=== PATIENT | female | born 1965 ===

== ENCOUNTER 2018-10-03 14:43 | Inpatient (IN) ==
[2018-10-03] MEDS ORDERED: MEPERIDINE 25 MG/1 ML VIAL IM STA (15:04)
[2018-10-03] MEDS ORDERED: PROMETHAZINE 25 MG/1 ML VIAL IM STA (15:04)
[2018-10-03] MEDS ORDERED: DEXTROSE 50% 25 GM/50 ML VIAL IV PRN (17:28)
[2018-10-03] MEDS ORDERED: GLUCAGON 1 MG VIAL IM PRN (17:28)
[2018-10-03 19:34] LABS: Basophils % 0.3 % (0.0-0.8); Eosinophils # 0.2 10*3/uL (0.0-0.87); Eosinophils % 1.9 % (0.00-10.9); Hemoglobin 10.1 GM/DL (12.0-16.0); Immature Granulocytes % 0.3 %; Immature Granulocytes Absolute 0.04 #; Lymphocytes # 2.4 10*3/uL (1.4-4.0); Lymphocytes % 19.4 % (21.3-54.2); Mean Corpuscular HGB Conc 31.6 GM/DL (32-36); Mean Corpuscular Hemoglobin 29 PG (27-34); Mean Corpuscular Volume 92.8 FL (87-102); Mean Platelet Volume 10.3 FL (9.6-12.0); Monocytes # 0.8 10*3/uL (0.11-0.8); Monocytes % 6.6 % (1.7-12.7); Neutrophils # 8.8 10*3/uL (1.4-7.4); Neutrophils % 71.5 % (38.7-73.9); Platelet Count 206 T/CUMM (130-400); Red Blood Count 3.45 MC/CUMM (3.8-5.5); Red Cell Distribution Width 13.1 % (9.3-17.3); White Blood Count 12.4 T/CUMM (4-12)
[2018-10-03 19:55] LABS: Albumin 3.2 G/DL (3.4-5.0); Bilirubin,Total 0.8 MG/DL (0.2-1.0); Calcium 9.6 MG/DL (8.5-10.1); Osmolality,Calculated 289.2 MOS/KG (273-304); Potassium 4.5 MMOL/L (3.5-5.1); Total Protein 7.7 G/DL (6.4-8.3)
[2018-10-03] MEDS: INSULIN LISPRO 100 UNIT/ML SUBCUT SCH (21:06)
[2018-10-04 05:01] LABS: Basophils # 0.1 10*3/uL (0.0-0.2); Basophils % 0.4 % (0.0-0.8); Eosinophils # 0.2 10*3/uL (0.0-0.87); Eosinophils % 1.5 % (0.00-10.9); Hemoglobin 10.4 GM/DL (12.0-16.0); Immature Granulocytes % 0.4 %; Immature Granulocytes Absolute 0.05 #; Lymphocytes # 2.6 10*3/uL (1.4-4.0); Lymphocytes % 19.5 % (21.3-54.2); Mean Corpuscular HGB Conc 31.5 GM/DL (32-36); Mean Corpuscular Hemoglobin 30 PG (27-34); Mean Platelet Volume 10.5 FL (9.6-12.0); Monocytes # 0.9 10*3/uL (0.11-0.8); Monocytes % 6.3 % (1.7-12.7); Neutrophils # 9.7 10*3/uL (1.4-7.4); Neutrophils % 71.9 % (38.7-73.9); Platelet Count 204 T/CUMM (130-400); Red Blood Count 3.51 MC/CUMM (3.8-5.5); Red Cell Distribution Width 13.2 % (9.3-17.3); White Blood Count 13.5 T/CUMM (4-12)
[2018-10-04 05:29] LABS: Calcium 8.9 MG/DL (8.5-10.1); Osmolality,Calculated 285.8 MOS/KG (273-304); Potassium 5.1 MMOL/L (3.5-5.1); Risk Ratio 4.19; Thyroid Stimulating Hormone 0.802 uIU/ml (0.358-3.74); VLDL CHOLESTEROL 40.8 MG/DL
[2018-10-04] MEDS: MORPHINE 4 MG/1 ML VIAL IV PRN ×2 (05:35→17:52)
[2018-10-04] MEDS: PANTOPRAZOLE 40 MG TABLET PO SCH ×2 (07:56→09:07)
[2018-10-04] MEDS: SODIUM CHLORIDE 0.9% 250 ML IV SCH ×2 (09:17→21:40)
[2018-10-04] MEDS: INSULIN LISPRO 100 UNIT/ML SUBCUT SCH ×4 (10:07→21:40)
[2018-10-04] MEDS ORDERED: ceFAZolin 1,000 MG VIAL ONE (10:33)
[2018-10-04] MEDS ORDERED: fentaNYL 100 MCG/2 ML VIAL ONE (12:15)
[2018-10-04] MEDS ORDERED: MIDAZOLAM 2 MG/2 ML VIAL ONE (12:15)
[2018-10-04] MEDS ORDERED: SEVOFLURANE 1 UNIT/15 MINUTE INH ONE (12:15)
[2018-10-04] MEDS ORDERED: PROPOFOL 200 MG/20 ML VIAL IV ONE (12:16)
[2018-10-04] MEDS ORDERED: ePHEDrine 50 MG/ML AMP ONE (12:17)
[2018-10-04] MEDS ORDERED: GLYCOPYRROLATE 0.4 MG/2 ML VIAL ONE (12:17)
[2018-10-04] MEDS ORDERED: ROCURONIUM 100 MG/10 ML VIAL IV ONE (12:17)
[2018-10-04] MEDS ORDERED: NEOSTIGMINE 10 MG/10 ML VIAL ONE (12:17)
[2018-10-04] MEDS ORDERED: PHENYLEPHRINE 1 MG/10 ML SYRINGE IV ONE (12:17)
[2018-10-04] MEDS ORDERED: ONDANSETRON 4 MG/2 ML VIAL ONE (12:17)
[2018-10-04 14:23] LABS: Hepatitis A Ab IgM Quant 0.15 Index; Hepatitis A Ab IgM Result Negative (Negative); Hepatitis B Core IgM Quant 0.05 Index; Hepatitis B Core IgM Result Negative (Negative); Hepatitis B Surface Ag Quant < 0.10 Index; Hepatitis B Surface Ag Result Negative (Negative); Hepatitis C Virus Ab Quant 0.02 Index; Hepatitis C Virus Ab Result Negative (Negative)
[2018-10-04] MEDS: ONDANSETRON 4 MG/2 ML VIAL IV PRN (17:50)
[2018-10-04] MEDS: CALCIUM ACETATE 667 MG CAPSULE PO SCH ×2 (17:51→21:40)
[2018-10-04] MEDS: PARoxetine 10 MG TABLET PO SCH (17:52)
[2018-10-04] MEDS ORDERED: INSULIN NPH/REGULAR 70/30 100 UNIT/ML SUBCUT SCH (19:00)
[2018-10-04] MEDS: oxyCODONE/ACETAMINOPHEN 5-325 MG TABLET PO PRN (23:45)
[2018-10-04] MEDS ORDERED: GLUCAGON 1 MG VIAL IM PRN (23:48)
[2018-10-04] MEDS ORDERED: DEXTROSE 50% 25 GM/50 ML VIAL IV PRN (23:48)
[2018-10-05] MEDS: SODIUM CHLORIDE 0.9% 250 ML IV SCH ×2 (05:46→11:59)
[2018-10-05 06:36] LABS: Basophils % 0.2 % (0.0-0.8); Eosinophils # 0.1 10*3/uL (0.0-0.87); Eosinophils % 0.7 % (0.00-10.9); Hematocrit 28.2 VOL% (35.7-47.0); Hemoglobin 8.6 GM/DL (12.0-16.0); Immature Granulocytes % 0.3 %; Immature Granulocytes Absolute 0.04 #; Lymphocytes # 2.3 10*3/uL (1.4-4.0); Lymphocytes % 18.5 % (21.3-54.2); Mean Corpuscular HGB Conc 30.5 GM/DL (32-36); Mean Corpuscular Hemoglobin 29 PG (27-34); Mean Corpuscular Volume 95.6 FL (87-102); Mean Platelet Volume 10.5 FL (9.6-12.0); Monocytes % 8.1 % (1.7-12.7); Neutrophils # 8.9 10*3/uL (1.4-7.4); Neutrophils % 72.2 % (38.7-73.9); Platelet Count 168 T/CUMM (130-400); Red Blood Count 2.95 MC/CUMM (3.8-5.5); Red Cell Distribution Width 13.2 % (9.3-17.3); White Blood Count 12.3 T/CUMM (4-12)
[2018-10-05 06:53] LABS: Calcium 8.3 MG/DL (8.5-10.1); Osmolality,Calculated 275.9 MOS/KG (273-304)
[2018-10-05] MEDS ORDERED: ASPIRIN 325 MG TABLET PO SCH (09:00)
[2018-10-05] MEDS ORDERED: INSULIN NPH/REGULAR 70/30 100 UNIT/ML SUBCUT SCH (09:00)
[2018-10-05] MEDS ORDERED: LOSARTAN 50 MG TABLET PO SCH (09:00)
[2018-10-05] MEDS: PARoxetine 10 MG TABLET PO SCH (09:44)
[2018-10-05] MEDS: CALCIUM ACETATE 667 MG CAPSULE PO SCH ×3 (09:44→14:04)
[2018-10-05] MEDS: ONDANSETRON 4 MG/2 ML VIAL IV PRN (09:44)
[2018-10-05] MEDS: oxyCODONE/ACETAMINOPHEN 5-325 MG TABLET PO PRN (09:45)
[2018-10-05] MEDS: PANTOPRAZOLE 40 MG TABLET PO SCH (09:45)
[2018-10-05] MEDS: INSULIN LISPRO 100 UNIT/ML SUBCUT SCH ×2 (11:04→14:04)
[2018-10-05 11:34] VITALS: BP 103/46
== END 2018-10-05 13:55 | disposition home or self-care (01) | DRG 492 ==
LOC: EDUNIT# → N.ED 14:43 → N.EDINP 17:27 → SUATTDRO 17:27 → N.EDINP 18:27 → N.3E 18:48
PROVIDERS: ADMIT Hospitalist; ATTEND Internal Medicine Geriatric Medicine

== ENCOUNTER 2019-01-06 13:11 | Inpatient (IN) ==
[2019-01-06] MEDS ORDERED: cefOXitin 1,000 MG in SODIUM CHLORIDE 0.9% 100 ML IV STA (13:49)
[2019-01-06] MEDS ORDERED: BISACODYL 5 MG TABLET PO PRN (14:24)
[2019-01-06] MEDS ORDERED: ALBUTEROL/IPRATROPIUM 3 ML NEB RESP TX PRN (14:24)
[2019-01-06] MEDS ORDERED: ACETAMINOPHEN 325 MG TABLET PO PRN (14:24)
[2019-01-06] MEDS ORDERED: HYDROmorphone 2 MG/1 ML VIAL IV PRN (14:24)
[2019-01-06] MEDS ORDERED: GLUCAGON 1 MG VIAL IM PRN (14:30)
[2019-01-06] MEDS ORDERED: DEXTROSE 50% 25 GM/50 ML VIAL IV PRN (14:30)
[2019-01-06] MEDS: LACTATED RINGERS 1,000 ML IV SCH (15:40)
[2019-01-06] MEDS: INSULIN LISPRO 100 UNIT/ML SUBCUT SCH (17:56)
[2019-01-06] MEDS: cefOXitin 2,000 MG in SYRINGE 1 EACH IV SCH (20:45)
[2019-01-07] MEDS: LACTATED RINGERS 1,000 ML IV SCH ×3 (01:57→16:15)
[2019-01-07] MEDS: cefOXitin 2,000 MG in SYRINGE 1 EACH IV SCH (02:50)
[2019-01-07 05:18] LABS: PT Patient Result 11.2 SECS
[2019-01-07 05:23] LABS: Basophils % 0.3 % (0.0-0.8); Eosinophils # 0.1 10*3/uL (0.0-0.87); Eosinophils % 1.1 % (0.00-10.9); Hemoglobin 9.3 GM/DL (12.0-16.0); Immature Granulocytes % 0.3 %; Immature Granulocytes Absolute 0.02 #; Lymphocytes # 1.3 10*3/uL (1.4-4.0); Lymphocytes % 16.7 % (21.3-54.2); Mean Corpuscular Hemoglobin 28 PG (27-34); Mean Corpuscular Volume 90.1 FL (87-102); Mean Platelet Volume 10.7 FL (9.6-12.0); Monocytes # 0.7 10*3/uL (0.11-0.8); Monocytes % 9.2 % (1.7-12.7); Neutrophils # 5.4 10*3/uL (1.4-7.4); Neutrophils % 72.4 % (38.7-73.9); Platelet Count 173 T/CUMM (130-400); Red Blood Count 3.33 MC/CUMM (3.8-5.5); White Blood Count 7.5 T/CUMM (4-12)
[2019-01-07 05:30] LABS: Albumin 2.8 G/DL (3.4-5.0); Bilirubin,Total 4.1 MG/DL (0.2-1.0); Calcium 8.1 MG/DL (8.5-10.1); Osmolality,Calculated 277.4 MOS/KG (273-304); Potassium 3.5 MMOL/L (3.5-5.1); Total Protein 7.1 G/DL (6.4-8.3)
[2019-01-07] MEDS: INSULIN LISPRO 100 UNIT/ML SUBCUT SCH ×3 (08:53→18:00)
[2019-01-07] MEDS: PANTOPRAZOLE 40 MG TABLET PO SCH (08:54)
[2019-01-07] MEDS ORDERED: ceFAZolin 2,000 MG in PREMIX 1 EACH IV ONE (10:29)
[2019-01-07] MEDS ORDERED: INDOMETHACIN SUPP 50 MG SUPP RECTAL ONE (11:30)
[2019-01-07] MEDS ORDERED: TISSUE ADHESIVE 1 EACH APPLICATOR TOP ONE (11:38)
[2019-01-07] MEDS ORDERED: LIDOCAINE 1%/EPI INJ 20 ML VIAL ONE (11:38)
[2019-01-07] MEDS ORDERED: PROPOFOL 200 MG/20 ML VIAL IV ONE (13:15)
[2019-01-07] MEDS ORDERED: SEVOFLURANE 1 UNIT/15 MINUTE INH ONE (13:15)
[2019-01-07] MEDS ORDERED: DEXAMETHASONE 4 MG/1 ML VIAL ONE (13:16)
[2019-01-07] MEDS ORDERED: NEOSTIGMINE 10 MG/10 ML VIAL ONE (13:16)
[2019-01-07] MEDS ORDERED: ROCURONIUM 100 MG/10 ML VIAL IV ONE (13:16)
[2019-01-07] MEDS ORDERED: ONDANSETRON 4 MG/2 ML VIAL ONE ×2 (13:16→13:44)
[2019-01-07] MEDS ORDERED: GLYCOPYRROLATE 0.4 MG/2 ML VIAL ONE (13:16)
[2019-01-07] MEDS ORDERED: KETAMINE 500 MG/10 ML VIAL ONE (13:16)
[2019-01-07] MEDS ORDERED: MEPERIDINE 25 MG/1 ML VIAL ONE (13:44)
[2019-01-07] MEDS ORDERED: ONDANSETRON 4 MG/2 ML VIAL IV PRN (14:24)
[2019-01-07] MEDS ORDERED: MEPERIDINE 25 MG/1 ML VIAL IV PRN (14:24)
[2019-01-07] MEDS ORDERED: EPOETIN ALFA 2,000 UNIT/1 ML VIAL IV PRN (14:49)
[2019-01-07] MEDS ORDERED: SODIUM CHLORIDE 0.9% 500 ML IV PRN (14:56)
[2019-01-07] MEDS ORDERED: cefOXitin 1,000 MG in SYRINGE 1 EACH IV SCH (17:00)
[2019-01-07] MEDS: ONDANSETRON 4 MG/2 ML VIAL IV PRN (18:07)
[2019-01-07] MEDS: CALCIUM ACETATE 667 MG CAPSULE PO SCH ×2 (18:07→20:23)
[2019-01-08] MEDS: LACTATED RINGERS 1,000 ML IV SCH ×2 (02:02→07:52)
[2019-01-08 05:00] LABS: Basophils % 0.1 % (0.0-0.8); Hematocrit 32.6 VOL% (35.7-47.0); Hemoglobin 10.1 GM/DL (12.0-16.0); Immature Granulocytes % 0.4 %; Immature Granulocytes Absolute 0.06 #; Lymphocytes # 0.7 10*3/uL (1.4-4.0); Lymphocytes % 4.4 % (21.3-54.2); Mean Corpuscular Hemoglobin 28 PG (27-34); Mean Corpuscular Volume 89.1 FL (87-102); Mean Platelet Volume 11.2 FL (9.6-12.0); Monocytes # 0.6 10*3/uL (0.11-0.8); Monocytes % 3.8 % (1.7-12.7); Neutrophils # 13.8 10*3/uL (1.4-7.4); Neutrophils % 91.3 % (38.7-73.9); Platelet Count 171 T/CUMM (130-400); Red Blood Count 3.66 MC/CUMM (3.8-5.5); White Blood Count 15.1 T/CUMM (4-12)
[2019-01-08 05:28] LABS: Alanine Aminotransferase 29 U/L (13-56); Albumin 2.5 G/DL (3.4-5.0); Alkaline Phosphatase 291 U/L (45-117); Aspartate Amino Transferase 43 U/L (0-37); Blood Urea Nitrogen 54 MG/DL (7-18); Calcium 7.7 MG/DL (8.5-10.1); Glucose 268 MG/DL (74-106); Lipase < 50.0 U/L (73-393); Osmolality,Calculated 281.9 MOS/KG (273-304); Potassium 4.6 MMOL/L (3.5-5.1); Sodium 129 MMOL/L (136-145); Total Protein 7.2 G/DL (6.4-8.3)
[2019-01-08 05:51] LABS: Anisocytosis 1+; Band Neutrophils 9 % (0-10); Lymphocytes 4 % (20-55); Platelet Estimate Adequate; Segmented Neutrophils 83 % (50-85); Total Cells Counted 100
[2019-01-08] MEDS: INSULIN LISPRO 100 UNIT/ML SUBCUT SCH ×3 (07:52→17:00)
[2019-01-08] MEDS: CALCIUM ACETATE 667 MG CAPSULE PO SCH ×5 (07:52→20:43)
[2019-01-08] MEDS: LOSARTAN 50 MG TABLET PO SCH (08:15)
[2019-01-08] MEDS: PANTOPRAZOLE 40 MG TABLET PO SCH (08:15)
[2019-01-08] MEDS: PARoxetine 10 MG TABLET PO SCH (08:15)
[2019-01-09 05:01] LABS: Basophils % 0.2 % (0.0-0.8); Eosinophils % 0.4 % (0.00-10.9); Hematocrit 32.2 VOL% (35.7-47.0); Hemoglobin 9.8 GM/DL (12.0-16.0); Immature Granulocytes % 0.5 %; Immature Granulocytes Absolute 0.06 #; Lymphocytes # 1.4 10*3/uL (1.4-4.0); Lymphocytes % 12.7 % (21.3-54.2); Mean Corpuscular HGB Conc 30.4 GM/DL (32-36); Mean Corpuscular Hemoglobin 27 PG (27-34); Mean Corpuscular Volume 89.2 FL (87-102); Mean Platelet Volume 10.4 FL (9.6-12.0); Monocytes # 0.8 10*3/uL (0.11-0.8); Neutrophils # 8.8 10*3/uL (1.4-7.4); Neutrophils % 79.2 % (38.7-73.9); Platelet Count 171 T/CUMM (130-400); Red Blood Count 3.61 MC/CUMM (3.8-5.5); Red Cell Distribution Width 16.4 % (9.3-17.3); White Blood Count 11.1 T/CUMM (4-12)
[2019-01-09 05:30] LABS: Albumin 2.5 G/DL (3.4-5.0); Bilirubin,Total 3.5 MG/DL (0.2-1.0); Calcium 8.3 MG/DL (8.5-10.1); Osmolality,Calculated 279.8 MOS/KG (273-304); Total Protein 7.4 G/DL (6.4-8.3)
[2019-01-09] MEDS: CALCIUM ACETATE 667 MG CAPSULE PO SCH ×5 (08:56→20:20)
[2019-01-09] MEDS: PARoxetine 10 MG TABLET PO SCH (08:56)
[2019-01-09] MEDS: PANTOPRAZOLE 40 MG TABLET PO SCH (08:56)
[2019-01-09] MEDS: LOSARTAN 50 MG TABLET PO SCH (08:56)
[2019-01-09] MEDS: INSULIN LISPRO 100 UNIT/ML SUBCUT SCH ×3 (08:57→16:40)
[2019-01-09] MEDS: ONDANSETRON 4 MG/2 ML VIAL IV PRN (12:00)
[2019-01-10 06:13] LABS: Albumin 2.4 G/DL (3.4-5.0); Bilirubin,Direct 1.67 MG/DL (0.0-0.20); Bilirubin,Indirect 0.5 MG/DL (0.0-1.0); Bilirubin,Total 2.2 MG/DL (0.2-1.0)
[2019-01-10] MEDS: PARoxetine 10 MG TABLET PO SCH (09:04)
[2019-01-10] MEDS: LOSARTAN 50 MG TABLET PO SCH (09:04)
[2019-01-10] MEDS: PANTOPRAZOLE 40 MG TABLET PO SCH (09:04)
[2019-01-10] MEDS: CALCIUM ACETATE 667 MG CAPSULE PO SCH ×4 (09:05→17:04)
[2019-01-10] MEDS: INSULIN LISPRO 100 UNIT/ML SUBCUT SCH ×3 (09:56→17:04)
[2019-01-10 17:29] VITALS: BP 174/72
== END 2019-01-10 18:25 | disposition home or self-care (01) | DRG 417 ==
LOC: EDBD → EDUNIT# → N.ED 13:11 → N.EDINP 14:52 → N.3E 16:40
PROVIDERS: ADMIT Surgery; ATTEND Surgery
PROC: ERCPWSP (ICD-10-PCS; 2019-01-07 09:35)
PROC: LAPCHOL (2019-01-07 11:03)

== ENCOUNTER 2019-10-23 14:25 | Inpatient (IN) ==
[2019-10-23] MEDS ORDERED: ONDANSETRON 4 MG/2 ML VIAL IV PRN (17:13)
[2019-10-23] MEDS ORDERED: DOCUSATE SODIUM 100 MG CAPSULE PO PRN (17:13)
[2019-10-23] MEDS ORDERED: LACTULOSE 20 GM/30 ML UDCUP PO PRN (17:13)
[2019-10-23] MEDS ORDERED: GLUCAGON 1 MG VIAL IM PRN (17:19)
[2019-10-23] MEDS ORDERED: DEXTROSE 10% 250 ML BAG IV PRN (17:19)
[2019-10-23] MEDS: PIPERACILLIN/TAZOBACTAM 3,375 MG in SODIUM CHLORIDE 0.9% 100 ML IV SCH (18:24)
[2019-10-23] MEDS ORDERED: LABETALOL 20 MG/4 ML SYRINGE IV PRN (18:36)
[2019-10-23] MEDS ORDERED: VANCOMYCIN INJ 500 MG in SODIUM CHLORIDE 0.9% 250 ML IV PRN (19:32)
[2019-10-23] MEDS ORDERED: VANCOMYCIN INJ 1,000 MG in SODIUM CHLORIDE 0.9% 250 ML IV ONE (20:00)
[2019-10-23] MEDS: INSULIN REGULAR 100 UNIT/ML SUBCUT SCH (20:58)
[2019-10-23] MEDS: ACETAMINOPHEN 325 MG TABLET PO PRN (20:58)
[2019-10-23] MEDS: HEPARIN 5,000 UNIT/1 ML VIAL SUBCUT SCH (22:03)
[2019-10-23] MEDS ORDERED: VANCOMYCIN INJ 2,000 MG in SODIUM CHLORIDE 0.9% 500 ML IV ONE (22:30)
[2019-10-24 05:20] LABS: Basophils % 0.1 % (0.0-0.8); Eosinophils # 0.3 10*3/uL (0.0-0.87); Eosinophils % 1.8 % (0.00-10.9); Hematocrit 24.8 VOL% (35.7-47.0); Hemoglobin 7.8 GM/DL (12.0-16.0); Immature Granulocytes % 0.7 %; Lymphocytes # 2.1 10*3/uL (1.4-4.0); Lymphocytes % 14.3 % (21.3-54.2); Mean Corpuscular HGB Conc 31.5 GM/DL (32-36); Mean Corpuscular Volume 96.9 FL (87-102); Monocytes % 6.3 % (1.7-12.7); Neutrophils % 76.8 % (38.7-73.9); Platelet Count 294 T/CUMM (130-400); Red Blood Count 2.56 MC/CUMM (3.8-5.5); Red Cell Distribution Width 13.1 % (9.3-17.3); White Blood Count 14.7 T/CUMM (4-12)
[2019-10-24] MEDS: PIPERACILLIN/TAZOBACTAM 3,375 MG in SODIUM CHLORIDE 0.9% 100 ML IV SCH ×2 (05:26→20:59)
[2019-10-24 05:44] LABS: Calcium 8.3 MG/DL (8.5-10.1); Osmolality,Calculated 280.5 MOS/KG (273-304)
[2019-10-24] MEDS: HEPARIN 5,000 UNIT/1 ML VIAL SUBCUT SCH ×3 (05:44→21:04)
[2019-10-24] MEDS ORDERED: DEXTROSE 50% 25 GM/50 ML VIAL IV PRN (09:27)
[2019-10-24] MEDS: PARoxetine 10 MG TABLET PO SCH (09:41)
[2019-10-24] MEDS: INSULIN REGULAR 100 UNIT/ML SUBCUT SCH ×4 (09:41→21:35)
[2019-10-24] MEDS: LOSARTAN 50 MG TABLET PO SCH (09:43)
[2019-10-24] MEDS: SEVELAMER CARBONATE 800 MG TABLET PO SCH ×2 (12:17→18:51)
[2019-10-24] MEDS: carvediloL 25 MG TABLET PO SCH ×2 (12:17→18:51)
[2019-10-24] MEDS: CALCIUM ACETATE 667 MG CAPSULE PO SCH ×2 (12:17→18:51)
[2019-10-24] MEDS ORDERED: VANCOMYCIN INJ 500 MG in SODIUM CHLORIDE 0.9% 100 ML IV ONE (17:00)
[2019-10-25] MEDS: HEPARIN 5,000 UNIT/1 ML VIAL SUBCUT SCH ×3 (06:05→22:04)
[2019-10-25 06:14] LABS: Basophils # 0.1 10*3/uL (0.0-0.2); Basophils % 0.3 % (0.0-0.8); Eosinophils # 0.2 10*3/uL (0.0-0.87); Eosinophils % 1.4 % (0.00-10.9); Hematocrit 25.9 VOL% (35.7-47.0); Hemoglobin 8.1 GM/DL (12.0-16.0); Immature Granulocytes % 0.8 %; Immature Granulocytes Absolute 0.14 #; Lymphocytes # 1.8 10*3/uL (1.4-4.0); Mean Corpuscular HGB Conc 31.3 GM/DL (32-36); Mean Corpuscular Volume 97.7 FL (87-102); Mean Platelet Volume 9.5 FL (9.6-12.0); Monocytes % 6.5 % (1.7-12.7); Platelet Count 339 T/CUMM (130-400); Red Blood Count 2.65 MC/CUMM (3.8-5.5); Red Cell Distribution Width 13.3 % (9.3-17.3); White Blood Count 16.6 T/CUMM (4-12)
[2019-10-25 06:34] LABS: Calcium 8.7 MG/DL (8.5-10.1); Osmolality,Calculated 279.4 MOS/KG (273-304)
[2019-10-25] MEDS: INSULIN REGULAR 100 UNIT/ML SUBCUT SCH ×4 (09:34→22:03)
[2019-10-25] MEDS: SEVELAMER CARBONATE 800 MG TABLET PO SCH ×3 (09:35→16:31)
[2019-10-25] MEDS: CALCIUM ACETATE 667 MG CAPSULE PO SCH ×3 (09:35→16:31)
[2019-10-25] MEDS: carvediloL 25 MG TABLET PO SCH ×2 (13:13→16:31)
[2019-10-25] MEDS ORDERED: SODIUM CHLORIDE 0.9% 250 ML IV SCH (14:00)
[2019-10-25] MEDS ORDERED: LIDOCAINE 1% 20 ML VIAL ONE (14:01)
[2019-10-25] MEDS ORDERED: LIDOCAINE 2% 5 ML VIAL ONE (14:27)
[2019-10-25] MEDS ORDERED: fentaNYL 100 MCG/2 ML VIAL ONE (14:27)
[2019-10-25] MEDS ORDERED: propofoL 200 MG/20 ML VIAL IV ONE (14:27)
[2019-10-25] MEDS ORDERED: MIDAZOLAM 2 MG/2 ML VIAL ONE (14:28)
[2019-10-25] MEDS: PIPERACILLIN/TAZOBACTAM 3,375 MG in SODIUM CHLORIDE 0.9% 100 ML IV SCH ×2 (16:28→20:53)
[2019-10-25] MEDS: LOSARTAN 50 MG TABLET PO SCH (16:31)
[2019-10-25] MEDS: PARoxetine 10 MG TABLET PO SCH (16:31)
[2019-10-26] MEDS: ACETAMINOPHEN 325 MG TABLET PO PRN (00:39)
[2019-10-26 05:23] LABS: Basophils # 0.1 10*3/uL (0.0-0.2); Basophils % 0.4 % (0.0-0.8); Eosinophils # 0.2 10*3/uL (0.0-0.87); Eosinophils % 1.6 % (0.00-10.9); Hematocrit 25.5 VOL% (35.7-47.0); Immature Granulocytes Absolute 0.14 #; Lymphocytes # 1.7 10*3/uL (1.4-4.0); Lymphocytes % 12.2 % (21.3-54.2); Mean Corpuscular HGB Conc 31.4 GM/DL (32-36); Mean Corpuscular Volume 98.1 FL (87-102); Mean Platelet Volume 9.9 FL (9.6-12.0); Monocytes % 6.3 % (1.7-12.7); Neutrophils % 78.5 % (38.7-73.9); Platelet Count 310 T/CUMM (130-400); Red Cell Distribution Width 13.3 % (9.3-17.3); White Blood Count 14.1 T/CUMM (4-12)
[2019-10-26 05:33] LABS: Calcium 8.4 MG/DL (8.5-10.1); Osmolality,Calculated 277.9 MOS/KG (273-304)
[2019-10-26 05:43] LABS: Hypochromasia 1+; Platelet Estimate Adequate
[2019-10-26] MEDS: HEPARIN 5,000 UNIT/1 ML VIAL SUBCUT SCH ×3 (06:15→21:16)
[2019-10-26] MEDS: INSULIN REGULAR 100 UNIT/ML SUBCUT SCH ×4 (08:20→21:09)
[2019-10-26] MEDS: SEVELAMER CARBONATE 800 MG TABLET PO SCH ×3 (08:21→18:36)
[2019-10-26] MEDS: carvediloL 25 MG TABLET PO SCH ×2 (08:21→18:36)
[2019-10-26] MEDS: LOSARTAN 50 MG TABLET PO SCH (08:21)
[2019-10-26] MEDS: PARoxetine 10 MG TABLET PO SCH (08:21)
[2019-10-26] MEDS: PIPERACILLIN/TAZOBACTAM 3,375 MG in SODIUM CHLORIDE 0.9% 100 ML IV SCH ×2 (08:21→21:10)
[2019-10-26] MEDS: CALCIUM ACETATE 667 MG CAPSULE PO SCH ×3 (08:21→18:36)
[2019-10-26] MEDS: SODIUM HYPOCHLORITE 0.25% IRRIG 473 ML BOTTLE TOP SCH (10:48)
[2019-10-26] MEDS ORDERED: VANCOMYCIN INJ 500 MG in SODIUM CHLORIDE 0.9% 100 ML IV PRN (12:00)
[2019-10-26] MEDS ORDERED: VANCOMYCIN INJ 500 MG in SODIUM CHLORIDE 0.9% 100 ML IV ONE (17:00)
[2019-10-26] MEDS: INSULIN GLARGINE 100 UNIT/ML SUBCUT SCH (18:37)
[2019-10-27 04:50] LABS: Basophils % 0.3 % (0.0-0.8); Eosinophils # 0.5 10*3/uL (0.0-0.87); Eosinophils % 3.8 % (0.00-10.9); Hemoglobin 7.8 GM/DL (12.0-16.0); Immature Granulocytes Absolute 0.12 #; Lymphocytes # 1.8 10*3/uL (1.4-4.0); Lymphocytes % 14.7 % (21.3-54.2); Mean Corpuscular HGB Conc 31.2 GM/DL (32-36); Mean Corpuscular Volume 96.5 FL (87-102); Mean Platelet Volume 9.3 FL (9.6-12.0); Monocytes % 8.2 % (1.7-12.7); Platelet Count 334 T/CUMM (130-400); Red Blood Count 2.59 MC/CUMM (3.8-5.5); Red Cell Distribution Width 13.3 % (9.3-17.3)
[2019-10-27 05:21] LABS: Calcium 9.1 MG/DL (8.5-10.1); Osmolality,Calculated 279.4 MOS/KG (273-304)
[2019-10-27] MEDS: HEPARIN 5,000 UNIT/1 ML VIAL SUBCUT SCH (05:42)
[2019-10-27] MEDS: SEVELAMER CARBONATE 800 MG TABLET PO SCH ×2 (08:28→12:02)
[2019-10-27] MEDS: carvediloL 25 MG TABLET PO SCH (08:28)
[2019-10-27] MEDS: PARoxetine 10 MG TABLET PO SCH (08:28)
[2019-10-27] MEDS: LOSARTAN 50 MG TABLET PO SCH (08:28)
[2019-10-27] MEDS: CALCIUM ACETATE 667 MG CAPSULE PO SCH ×2 (08:28→12:02)
[2019-10-27] MEDS: INSULIN GLARGINE 100 UNIT/ML SUBCUT SCH (08:29)
[2019-10-27] MEDS: INSULIN REGULAR 100 UNIT/ML SUBCUT SCH ×2 (08:29→12:02)
[2019-10-27] MEDS: SODIUM HYPOCHLORITE 0.25% IRRIG 473 ML BOTTLE TOP SCH (08:34)
[2019-10-27] MEDS: PIPERACILLIN/TAZOBACTAM 3,375 MG in SODIUM CHLORIDE 0.9% 100 ML IV SCH (08:34)
[2019-10-27] MEDS ORDERED: GENTAMICIN INJ 100 MG in PREMIX 1 EACH IV PRN (08:36)
[2019-10-27] MEDS ORDERED: GENTAMICIN INJ 200 MG in SODIUM CHLORIDE 0.9% 100 ML IV ONE (09:30)
[2019-10-27 12:28] VITALS: BP 129/47
== END 2019-10-27 14:45 | disposition home health service (06) | DRG 239 ==
LOC: SUATTDRO 16:07 → N.2E 16:07
PROVIDERS: ADMIT Internal Medicine; ATTEND Internal Medicine

== ENCOUNTER 2020-10-16 23:29 | Inpatient (IN) ==
[2020-10-17] MEDS ORDERED: DEXTROSE 50% 25 GM/50 ML VIAL IV PRN (01:45)
[2020-10-17] MEDS ORDERED: GLUCAGON 1 MG VIAL IM PRN (01:45)
[2020-10-17] MEDS ORDERED: PIPERACILLIN/TAZOBACTAM 3,375 MG in SODIUM CHLORIDE 0.9% 100 ML IV SCH (02:00)
[2020-10-17] MEDS: PIPERACILLIN/TAZOBACTAM 3,375 MG in SODIUM CHLORIDE 0.9% 100 ML IV SCH ×2 (03:19→16:50)
[2020-10-17 03:46] LABS: Basophils % 0.2 % (0.0-0.8); Eosinophils # 0.1 10*3/uL (0.0-0.87); Eosinophils % 0.5 % (0.00-10.9); Hematocrit 26.3 VOL% (35.7-47.0); Hemoglobin 8.4 GM/DL (12.0-16.0); Immature Granulocytes % 0.4 %; Immature Granulocytes Absolute 0.07 #; Lymphocytes % 12.6 % (21.3-54.2); Mean Corpuscular HGB Conc 31.9 GM/DL (32-36); Mean Corpuscular Volume 92.6 FL (87-102); Mean Platelet Volume 9.4 FL (9.6-12.0); Monocytes % 6.2 % (1.7-12.7); Neutrophils % 80.1 % (38.7-73.9); Platelet Count 243 T/CUMM (130-400); Red Blood Count 2.84 MC/CUMM (3.8-5.5); Red Cell Distribution Width 14.2 % (9.3-17.3); White Blood Count 15.9 T/CUMM (4-12)
[2020-10-17] MEDS: MORPHINE 4 MG/1 ML VIAL IV PRN ×2 (03:55→20:53)
[2020-10-17] MEDS: ONDANSETRON 4 MG/2 ML VIAL IV PRN ×2 (04:06→20:53)
[2020-10-17 04:08] LABS: Albumin 2.7 G/DL (3.4-5.0); Bilirubin,Total 1.3 MG/DL (0.2-1.0); Calcium 8.5 MG/DL (8.5-10.1); Osmolality,Calculated 273.1 MOS/KG (273-304); Potassium 3.9 MMOL/L (3.5-5.1); Total Protein 7.6 G/DL (6.4-8.3)
[2020-10-17] MEDS: INSULIN REGULAR 100 UNIT/ML SUBCUT SCH ×4 (06:12→23:44)
[2020-10-17] MEDS ORDERED: SEVELAMER CARBONATE 800 MG TABLET PO SCH (09:00)
[2020-10-17] MEDS: carvediloL 25 MG TABLET PO SCH ×2 (09:17→20:53)
[2020-10-17] MEDS: PARoxetine 10 MG TABLET PO SCH (09:17)
[2020-10-17] MEDS ORDERED: VANCOMYCIN IV PRN (10:00)
[2020-10-17] MEDS ORDERED: SODIUM CHLORIDE 0.9% IV PRN (10:00)
[2020-10-17] MEDS ORDERED: SODIUM CHLORIDE 0.9% 500 ML IV STA (10:01)
[2020-10-17 11:00] LABS: Calcium 8.5 MG/DL (8.5-10.1); Osmolality,Calculated 284.7 MOS/KG (273-304); Potassium 4.3 MMOL/L (3.5-5.1)
[2020-10-17] MEDS ORDERED: BUPIVACAINE MPF 0.25% 30 ML VIAL ONE (11:23)
[2020-10-17] MEDS ORDERED: LIDOCAINE 1% 20 ML VIAL ONE (11:23)
[2020-10-17] MEDS ORDERED: propofoL 200 MG/20 ML VIAL IV ONE (12:16)
[2020-10-17] MEDS ORDERED: MIDAZOLAM 2 MG/2 ML VIAL ONE (12:16)
[2020-10-17] MEDS ORDERED: fentaNYL 100 MCG/2 ML VIAL ONE (12:16)
[2020-10-17] MEDS ORDERED: LIDOCAINE 2% 5 ML VIAL ONE (12:16)
[2020-10-17] MEDS ORDERED: ONDANSETRON 4 MG/2 ML VIAL ONE (12:22)
[2020-10-17] MEDS: HEPARIN 5,000 UNIT/1 ML VIAL SUBCUT SCH (16:50)
[2020-10-17] MEDS: SEVELAMER CARBONATE 800 MG TABLET PO SCH (17:47)
[2020-10-18] MEDS: PIPERACILLIN/TAZOBACTAM 3,375 MG in SODIUM CHLORIDE 0.9% 100 ML IV SCH ×2 (02:00→14:18)
[2020-10-18] MEDS: HEPARIN 5,000 UNIT/1 ML VIAL SUBCUT SCH ×2 (02:00→14:18)
[2020-10-18] MEDS: INSULIN REGULAR 100 UNIT/ML SUBCUT SCH ×3 (05:31→17:47)
[2020-10-18 07:06] LABS: Basophils % 0.3 % (0.0-0.8); Eosinophils # 0.2 10*3/uL (0.0-0.87); Hematocrit 25.9 VOL% (35.7-47.0); Hemoglobin 7.7 GM/DL (12.0-16.0); Immature Granulocytes % 0.4 %; Immature Granulocytes Absolute 0.04 #; Lymphocytes # 1.5 10*3/uL (1.4-4.0); Mean Corpuscular HGB Conc 29.7 GM/DL (32-36); Mean Corpuscular Volume 97.7 FL (87-102); Mean Platelet Volume 10.1 FL (9.6-12.0); Monocytes % 6.5 % (1.7-12.7); Neutrophils % 74.8 % (38.7-73.9); Platelet Count 246 T/CUMM (130-400); Red Blood Count 2.65 MC/CUMM (3.8-5.5); Red Cell Distribution Width 14.5 % (9.3-17.3); White Blood Count 9.6 T/CUMM (4-12)
[2020-10-18 07:45] LABS: Calcium 8.3 MG/DL (8.5-10.1); Osmolality,Calculated 289.5 MOS/KG (273-304); Potassium 4.4 MMOL/L (3.5-5.1)
[2020-10-18] MEDS: FAMOTIDINE 20 MG TABLET PO SCH (09:18)
[2020-10-18] MEDS: PARoxetine 10 MG TABLET PO SCH (09:18)
[2020-10-18] MEDS: carvediloL 25 MG TABLET PO SCH ×2 (09:18→20:48)
[2020-10-18] MEDS: SEVELAMER CARBONATE 800 MG TABLET PO SCH ×3 (09:18→17:47)
[2020-10-18] MEDS ORDERED: VANCOMYCIN INJ 750 MG in SODIUM CHLORIDE 0.9% 250 ML IV PRN (12:11)
[2020-10-18] MEDS ORDERED: VANCOMYCIN INJ 1,250 MG in SODIUM CHLORIDE 0.9% 250 ML IV ONE (17:00)
[2020-10-19] MEDS: HEPARIN 5,000 UNIT/1 ML VIAL SUBCUT SCH ×2 (01:42→13:25)
[2020-10-19] MEDS: INSULIN REGULAR 100 UNIT/ML SUBCUT SCH ×3 (01:42→12:57)
[2020-10-19] MEDS: PIPERACILLIN/TAZOBACTAM 3,375 MG in SODIUM CHLORIDE 0.9% 100 ML IV SCH (02:05)
[2020-10-19 06:27] LABS: Basophils % 0.5 % (0.0-0.8); Eosinophils # 0.2 10*3/uL (0.0-0.87); Eosinophils % 1.7 % (0.00-10.9); Hematocrit 26.9 VOL% (35.7-47.0); Hemoglobin 8.5 GM/DL (12.0-16.0); Immature Granulocytes % 0.6 %; Immature Granulocytes Absolute 0.05 #; Lymphocytes # 1.6 10*3/uL (1.4-4.0); Lymphocytes % 18.5 % (21.3-54.2); Mean Corpuscular HGB Conc 31.6 GM/DL (32-36); Mean Corpuscular Volume 95.4 FL (87-102); Mean Platelet Volume 10.5 FL (9.6-12.0); Monocytes % 6.6 % (1.7-12.7); Neutrophils % 72.1 % (38.7-73.9); Platelet Count 235 T/CUMM (130-400); Red Blood Count 2.82 MC/CUMM (3.8-5.5); Red Cell Distribution Width 14.5 % (9.3-17.3); White Blood Count 8.8 T/CUMM (4-12)
[2020-10-19 06:39] LABS: Calcium 8.5 MG/DL (8.5-10.1); Osmolality,Calculated 280.4 MOS/KG (273-304)
[2020-10-19 06:49] LABS: Calcium 8.4 MG/DL (8.5-10.1); Osmolality,Calculated 272.8 MOS/KG (273-304); Potassium 4.1 MMOL/L (3.5-5.1)
[2020-10-19 07:36] VITALS: BP 131/54
[2020-10-19] MEDS: FAMOTIDINE 20 MG TABLET PO SCH (08:33)
[2020-10-19] MEDS: SEVELAMER CARBONATE 800 MG TABLET PO SCH ×2 (08:33→13:24)
[2020-10-19] MEDS: carvediloL 25 MG TABLET PO SCH (08:33)
[2020-10-19] MEDS: PARoxetine 10 MG TABLET PO SCH (08:33)
== END 2020-10-19 15:03 | disposition home health service (06) | DRG 239 ==
LOC: EDUNIT# → EDSEX → EDBD → N.ED 23:29 → N.3E 10-17 01:20 → N.EDINP 10-17 01:45 → SUATTDRO 10-17 01:45
PROVIDERS: ADMIT Internal Medicine; ATTEND Internal Medicine

== ENCOUNTER 2020-12-05 16:08 | Inpatient (IN) ==
[2020-12-05 16:59] LABS: Basophils % 0.2 % (0.0-0.8); Eosinophils % 0.2 % (0.00-10.9); Hematocrit 33.6 VOL% (35.7-47.0); Hemoglobin 10.7 GM/DL (12.0-16.0); Immature Granulocytes Absolute 0.17 #; Lymphocytes # 0.8 10*3/uL (1.4-4.0); Lymphocytes % 4.4 % (21.3-54.2); Mean Corpuscular HGB Conc 31.8 GM/DL (32-36); Mean Corpuscular Volume 91.6 FL (87-102); Mean Platelet Volume 9.9 FL (9.6-12.0); Monocytes % 3.6 % (1.7-12.7); Neutrophils % 90.6 % (38.7-73.9); Platelet Count 243 T/CUMM (130-400); Red Blood Count 3.67 MC/CUMM (3.8-5.5); Red Cell Distribution Width 15.3 % (9.3-17.3); White Blood Count 17.7 T/CUMM (4-12)
[2020-12-05 17:18] LABS: Albumin 2.5 G/DL (3.4-5.0); Bilirubin,Total 0.9 MG/DL (0.2-1.0); Calcium 8.5 MG/DL (8.5-10.1); Osmolality,Calculated 269.1 MOS/KG (273-304); Potassium 3.6 MMOL/L (3.5-5.1); Total Protein 8.2 G/DL (5.0-7.5)
[2020-12-05] MEDS ORDERED: LACTULOSE 20 GM/30 ML UDCUP PO PRN (17:26)
[2020-12-05] MEDS ORDERED: ONDANSETRON 4 MG/2 ML VIAL IV PRN (17:26)
[2020-12-05] MEDS ORDERED: hydrALAZINE 20 MG/1 ML VIAL IV PRN (17:26)
[2020-12-05] MEDS ORDERED: ACETAMINOPHEN 325 MG TABLET PO PRN (17:26)
[2020-12-05] MEDS ORDERED: DEXTROSE 50% 25 GM/50 ML VIAL IV PRN (17:26)
[2020-12-05] MEDS ORDERED: GLUCAGON 1 MG VIAL IM PRN (17:26)
[2020-12-05 17:27] LABS: Anisocytosis 1+; Hypochromasia 1+; Lymphocytes 6 % (20-55); Nucleated Red Blood Cells 3 (0-5); Segmented Neutrophils 92 % (50-85); Target Cells Few; Total Cells Counted 100
[2020-12-05 17:28] LABS: Platelet Estimate Adequate
[2020-12-05] MEDS ORDERED: VANCOMYCIN INJ 2,000 MG in SODIUM CHLORIDE 0.9% 500 ML IV ONE (20:00)
[2020-12-05] MEDS: INSULIN LISPRO 100 UNIT/ML SUBCUT SCH (20:16)
[2020-12-05] MEDS ORDERED: ENOXAPARIN 30 MG/0.3 ML SYRINGE SUBCUT SCH (21:00)
[2020-12-06 06:47] LABS: Basophils % 0.2 % (0.0-0.8); Eosinophils # 0.1 10*3/uL (0.0-0.87); Eosinophils % 0.4 % (0.00-10.9); Hematocrit 35.4 VOL% (35.7-47.0); Hemoglobin 10.9 GM/DL (12.0-16.0); Immature Granulocytes % 0.7 %; Immature Granulocytes Absolute 0.09 #; Lymphocytes # 1.2 10*3/uL (1.4-4.0); Lymphocytes % 9.2 % (21.3-54.2); Mean Corpuscular HGB Conc 30.8 GM/DL (32-36); Mean Corpuscular Volume 94.9 FL (87-102); Mean Platelet Volume 9.6 FL (9.6-12.0); Monocytes % 4.9 % (1.7-12.7); Neutrophils % 84.6 % (38.7-73.9); Platelet Count 222 T/CUMM (130-400); Red Blood Count 3.73 MC/CUMM (3.8-5.5); Red Cell Distribution Width 15.5 % (9.3-17.3); White Blood Count 13.5 T/CUMM (4-12)
[2020-12-06] MEDS: INSULIN LISPRO 100 UNIT/ML SUBCUT SCH ×4 (06:49→21:34)
[2020-12-06 07:34] LABS: Calcium 8.8 MG/DL (8.5-10.1); Osmolality,Calculated 265.7 MOS/KG (273-304); Potassium 3.9 MMOL/L (3.5-5.1)
[2020-12-06] MEDS ORDERED: BUPIVACAINE MPF 0.25% 30 ML VIAL ONE (08:59)
[2020-12-06] MEDS ORDERED: LIDOCAINE 1% 20 ML VIAL ONE (09:00)
[2020-12-06] MEDS ORDERED: SODIUM CHLORIDE 0.9% 250 ML IV SCH (09:30)
[2020-12-06] MEDS ORDERED: MIDAZOLAM 2 MG/2 ML VIAL ONE (09:46)
[2020-12-06] MEDS ORDERED: fentaNYL 100 MCG/2 ML VIAL ONE (09:47)
[2020-12-06] MEDS ORDERED: propofoL 200 MG/20 ML VIAL IV ONE (09:58)
[2020-12-06] MEDS ORDERED: ONDANSETRON 4 MG/2 ML VIAL ONE (09:58)
[2020-12-06] MEDS ORDERED: LIDOCAINE 2% 5 ML VIAL ONE (09:58)
[2020-12-06] MEDS ORDERED: CEFEPIME 1,000 MG in SODIUM CHLORIDE 0.9% 100 ML IV ONE (10:00)
[2020-12-06] MEDS ORDERED: DEXTROSE 50% 25 GM/50 ML VIAL IV PRN (11:06)
[2020-12-06] MEDS ORDERED: GLUCAGON 1 MG VIAL IM PRN (11:06)
[2020-12-06] MEDS: PANTOPRAZOLE 40 MG TABLET PO SCH (12:00)
[2020-12-06] MEDS: HEPARIN 5,000 UNIT/1 ML VIAL SUBCUT SCH (21:34)
[2020-12-07 07:10] LABS: Basophils % 0.3 % (0.0-0.8); Eosinophils # 0.2 10*3/uL (0.0-0.87); Eosinophils % 1.6 % (0.00-10.9); Hematocrit 31.9 VOL% (35.7-47.0); Immature Granulocytes % 0.6 %; Immature Granulocytes Absolute 0.06 #; Lymphocytes # 1.6 10*3/uL (1.4-4.0); Lymphocytes % 16.3 % (21.3-54.2); Mean Corpuscular HGB Conc 31.3 GM/DL (32-36); Mean Corpuscular Volume 92.7 FL (87-102); Mean Platelet Volume 9.6 FL (9.6-12.0); Monocytes % 8.3 % (1.7-12.7); Neutrophils % 72.9 % (38.7-73.9); Platelet Count 263 T/CUMM (130-400); Red Blood Count 3.44 MC/CUMM (3.8-5.5); Red Cell Distribution Width 15.4 % (9.3-17.3); White Blood Count 9.7 T/CUMM (4-12)
[2020-12-07 07:42] LABS: Calcium 8.6 MG/DL (8.5-10.1); Osmolality,Calculated 269.1 MOS/KG (273-304); Potassium 3.4 MMOL/L (3.5-5.1)
[2020-12-07] MEDS: HEPARIN 5,000 UNIT/1 ML VIAL SUBCUT SCH ×2 (08:23→21:23)
[2020-12-07] MEDS: PANTOPRAZOLE 40 MG TABLET PO SCH (08:23)
[2020-12-07] MEDS: INSULIN LISPRO 100 UNIT/ML SUBCUT SCH ×4 (08:26→21:23)
[2020-12-07] MEDS ORDERED: VANCOMYCIN INJ 750 MG in SODIUM CHLORIDE 0.9% 250 ML IV PRN ×2 (08:58→17:00)
[2020-12-07] MEDS: PARoxetine 10 MG TABLET PO SCH (11:42)
[2020-12-07] MEDS ORDERED: CEFEPIME 1,000 MG in SODIUM CHLORIDE 0.9% 100 ML IV SCH (17:00)
[2020-12-07] MEDS ORDERED: VANCOMYCIN INJ 750 MG in SODIUM CHLORIDE 0.9% 250 ML IV ONE (17:00)
[2020-12-08] MEDS: HEPARIN 5,000 UNIT/1 ML VIAL SUBCUT SCH ×2 (08:08→21:12)
[2020-12-08] MEDS: PARoxetine 10 MG TABLET PO SCH (08:08)
[2020-12-08] MEDS: INSULIN LISPRO 100 UNIT/ML SUBCUT SCH ×4 (08:08→21:12)
[2020-12-08] MEDS: PANTOPRAZOLE 40 MG TABLET PO SCH (08:08)
[2020-12-08] MEDS ORDERED: cefTRIAXone 1,000 MG VIAL IM SCH (10:00)
[2020-12-08] MEDS: cefTRIAXone 1,000 MG in SYRINGE 1 EACH IV SCH (11:37)
[2020-12-09] MEDS: PANTOPRAZOLE 40 MG TABLET PO SCH (08:15)
[2020-12-09] MEDS: HEPARIN 5,000 UNIT/1 ML VIAL SUBCUT SCH ×2 (08:15→21:00)
[2020-12-09] MEDS: INSULIN LISPRO 100 UNIT/ML SUBCUT SCH ×4 (08:16→21:00)
[2020-12-09] MEDS: PARoxetine 10 MG TABLET PO SCH (08:16)
[2020-12-09] MEDS: cefTRIAXone 1,000 MG in SYRINGE 1 EACH IV SCH (11:27)
[2020-12-10 05:29] LABS: Basophils % 0.4 % (0.0-0.8); Eosinophils # 0.3 10*3/uL (0.0-0.87); Eosinophils % 2.5 % (0.00-10.9); Hematocrit 32.7 VOL% (35.7-47.0); Hemoglobin 10.8 GM/DL (12.0-16.0); Immature Granulocytes % 1.2 %; Immature Granulocytes Absolute 0.13 #; Lymphocytes # 1.8 10*3/uL (1.4-4.0); Mean Corpuscular Volume 88.9 FL (87-102); Mean Platelet Volume 9.7 FL (9.6-12.0); Monocytes % 6.6 % (1.7-12.7); Neutrophils % 73.3 % (38.7-73.9); Platelet Count 276 T/CUMM (130-400); Red Blood Count 3.68 MC/CUMM (3.8-5.5); Red Cell Distribution Width 15.6 % (9.3-17.3); White Blood Count 10.9 T/CUMM (4-12)
[2020-12-10 05:54] LABS: Calcium 8.8 MG/DL (8.5-10.1); Osmolality,Calculated 273.1 MOS/KG (273-304)
[2020-12-10] MEDS: INSULIN LISPRO 100 UNIT/ML SUBCUT SCH ×3 (08:11→16:34)
[2020-12-10] MEDS: PANTOPRAZOLE 40 MG TABLET PO SCH (08:12)
[2020-12-10] MEDS: PARoxetine 10 MG TABLET PO SCH (08:12)
[2020-12-10] MEDS: HEPARIN 5,000 UNIT/1 ML VIAL SUBCUT SCH (08:12)
[2020-12-10] MEDS: cefTRIAXone 1,000 MG in SYRINGE 1 EACH IV SCH (11:39)
[2020-12-10] MEDS ORDERED: VANCOMYCIN INJ 750 MG in SODIUM CHLORIDE 0.9% 250 ML IV ONE (16:00)
[2020-12-10 16:57] VITALS: BP 108/77
== END 2020-12-10 17:09 | disposition home health service (06) | DRG 987 ==
LOC: EDUNIT# → N.ED 16:08 → SUATTDRO 17:26 → N.EDINP 17:26 → N.3E 18:06
PROVIDERS: ADMIT Internal Medicine; ATTEND Internal Medicine

== ENCOUNTER 2021-02-18 13:32 | Inpatient (IN) ==
[2021-02-18] MEDS ORDERED: GENTAMICIN INJ 140 MG in SODIUM CHLORIDE 0.9% 100 ML IV STA (14:05)
[2021-02-18] MEDS ORDERED: GENTAMICIN 80 MG/2 ML VIAL ONE ×2 (14:37→14:38)
[2021-02-18] MEDS ORDERED: HYDROmorphone 2 MG/1 ML VIAL ONE (15:18)
[2021-02-18] MEDS ORDERED: ONDANSETRON 4 MG/2 ML VIAL ONE (15:18)
[2021-02-18] MEDS ORDERED: HYDROmorphone 2 MG/1 ML VIAL IV STA (15:20)
[2021-02-18] MEDS ORDERED: ONDANSETRON 4 MG/2 ML VIAL IV STA (15:21)
[2021-02-18] MEDS ORDERED: metroNIDAZOLE INJ 500 MG/100 ML PREMIX IV ONE (15:50)
[2021-02-18] MEDS ORDERED: LEVOFLOXACIN INJ 750 MG/150 ML PREMIX IV ONE (15:50)
[2021-02-18] MEDS ORDERED: ALBUTEROL/IPRATROPIUM 3 ML NEB RESP TX PRN (15:51)
[2021-02-18] MEDS ORDERED: HYDROmorphone 2 MG/1 ML VIAL IV PRN (15:51)
[2021-02-18] MEDS ORDERED: ACETAMINOPHEN 325 MG TABLET PO PRN (15:51)
[2021-02-18] MEDS ORDERED: ONDANSETRON 4 MG/2 ML VIAL IV PRN (15:51)
[2021-02-18] MEDS ORDERED: INSULIN LISPRO 100 UNIT/ML SUBCUT SCH (16:00)
[2021-02-18] MEDS ORDERED: LACTATED RINGERS 1,000 ML IV SCH (16:00)
[2021-02-18] MEDS ORDERED: PIPERACILLIN/TAZOBACTAM 3,375 MG in SODIUM CHLORIDE 0.9% 100 ML IV SCH ×2 (16:00→17:34)
[2021-02-18] MEDS ORDERED: LIDOCAINE 2% 5 ML VIAL ONE (16:04)
[2021-02-18] MEDS ORDERED: propofoL 200 MG/20 ML VIAL IV ONE (16:04)
[2021-02-18] MEDS ORDERED: fentaNYL 100 MCG/2 ML VIAL ONE (16:05)
[2021-02-18] MEDS ORDERED: SEVOFLURANE 1 UNIT/15 MINUTE INH ONE (16:05)
[2021-02-18] MEDS ORDERED: SUCCINYLCHOLINE 200 MG/10 ML VIAL ONE (16:07)
[2021-02-18] MEDS ORDERED: GLUCAGON 1 MG VIAL IM PRN (16:08)
[2021-02-18] MEDS ORDERED: DEXTROSE 50% 25 GM/50 ML VIAL IV PRN ×2 (16:08→17:34)
[2021-02-18] MEDS ORDERED: ROCURONIUM 50 MG/5 ML VIAL IV ONE (17:00)
[2021-02-18] MEDS ORDERED: MIDAZOLAM 2 MG/2 ML VIAL ONE (17:00)
[2021-02-18] MEDS ORDERED: SODIUM CHLORIDE 0.9% 1,000 ML IV ONE (17:34)
[2021-02-18] MEDS ORDERED: VANCOMYCIN INJ 1,000 MG in SODIUM CHLORIDE 0.9% 250 ML IV SCH (17:34)
[2021-02-18] MEDS ORDERED: INSULIN REGULAR 100 UNIT/ML IV ONE (17:34)
[2021-02-18] MEDS: MIDAZOLAM 100 MG in SODIUM CHLORIDE 0.9% 80 ML IV PRN (18:03)
[2021-02-18] MEDS: INSULIN REGULAR DRIP 100 ML IV SCH (18:06)
[2021-02-18] MEDS: SODIUM CHLORIDE 0.9% 1,000 ML IV SCH (18:42)
[2021-02-18] MEDS: HYDROCORTISONE 100 MG VIAL IV SCH (18:43)
[2021-02-18] MEDS ORDERED: VANCOMYCIN INJ 2,000 MG in SODIUM CHLORIDE 0.9% 500 ML IV ONE (19:00)
[2021-02-18] MEDS: HYDROmorphone 2 MG/1 ML VIAL IV SCH ×2 (19:27→19:48)
[2021-02-18 19:29] LABS: ABG Base Excess 1.1 MMOL/L (-2.5-2.5); ABG HCO3 25.4 MMOL/L (20-26); ABG PCO2 25.9 MM HG (35-48); ABG PH 7.548 (7.35-7.45); ABG TCO2 20.5 MMOL/L (23-27)
[2021-02-18 19:36] LABS: Basophils % 0.2 % (0.0-0.8); Eosinophils % 0.3 % (0.00-10.9); Hematocrit 26.5 VOL% (35.7-47.0); Hemoglobin 8.5 GM/DL (12.0-16.0); Immature Granulocytes % 0.7 %; Lymphocytes % 6.8 % (21.3-54.2); Mean Corpuscular HGB Conc 32.1 GM/DL (32-36); Mean Corpuscular Volume 89.2 FL (87-102); Mean Platelet Volume 11.5 FL (9.6-12.0); Monocytes % 2.8 % (1.7-12.7); Neutrophils % 89.2 % (38.7-73.9); Platelet Count 137 T/CUMM (130-400); Red Blood Count 2.97 MC/CUMM (3.8-5.5); Red Cell Distribution Width 15.9 % (9.3-17.3); White Blood Count 14.8 T/CUMM (4-12)
[2021-02-18] MEDS: CLINDAMYCIN INJ 900 MG/50 ML PREMIX IV SCH (19:46)
[2021-02-18 19:47] LABS: INR 1.3; PT Patient Result 14.4 SECS (10.5-12.0)
[2021-02-18 19:48] LABS: Alanine Aminotransferase < 9 U/L (13-56); Albumin 1.8 G/DL (3.4-5.0); Alkaline Phosphatase 197 U/L (45-117); Aspartate Amino Transferase 22 U/L (0-37); Blood Urea Nitrogen 46 MG/DL (7-18); Calcium 7.6 MG/DL (8.5-10.1); Carbon Dioxide 24 MMOL/L (21-32); Estimated Glom Filtration Rate 6 ML/MIN; Glucose 236 MG/DL (74-106); Osmolality,Calculated 276.1 MOS/KG (273-304); Sodium 128 MMOL/L (136-145); Total Protein 5.9 G/DL (6.4-8.2)
[2021-02-18] MEDS: fentaNYL INJ 1,250 MCG in SODIUM CHLORIDE 0.9% 225 ML IV PRN (19:48)
[2021-02-18] MEDS: DEXTROSE 5% NACL 0.9% 1,000 ML IV SCH (20:30)
[2021-02-18] MEDS ORDERED: carvediloL 25 MG TABLET PO SCH (21:00)
[2021-02-19 00:31] LABS: Calcium 7.8 MG/DL (8.5-10.1); Osmolality,Calculated 274.8 MOS/KG (273-304); Potassium 2.8 MMOL/L (3.5-5.1)
[2021-02-19 00:36] LABS: ABG Base Excess 2.5 MMOL/L (-2.5-2.5); ABG HCO3 26.7 MMOL/L (20-26); ABG PCO2 22.9 MM HG (35-48); ABG TCO2 21.2 MMOL/L (23-27)
[2021-02-19 00:41] LABS: ABG PH 7.612 (7.35-7.45)
[2021-02-19] MEDS ORDERED: POTASSIUM CHLORIDE 20 MEQ/15 ML UDCUP PER TUBE ONE (01:44)
[2021-02-19] MEDS: CLINDAMYCIN INJ 900 MG/50 ML PREMIX IV SCH ×3 (01:55→18:23)
[2021-02-19] MEDS: HYDROCORTISONE 100 MG VIAL IV SCH ×3 (01:56→18:23)
[2021-02-19] MEDS: SODIUM CHLORIDE 0.9% 1,000 ML IV SCH (03:14)
[2021-02-19 03:59] LABS: Basophils % 0.2 % (0.0-0.8); Eosinophils % 0.1 % (0.00-10.9); Hematocrit 26.5 VOL% (35.7-47.0); Hemoglobin 9.1 GM/DL (12.0-16.0); Immature Granulocytes % 0.6 %; Lymphocytes # 0.8 10*3/uL (1.4-4.0); Lymphocytes % 4.9 % (21.3-54.2); Mean Corpuscular HGB Conc 34.3 GM/DL (32-36); Mean Corpuscular Volume 84.9 FL (87-102); Mean Platelet Volume 11.6 FL (9.6-12.0); Monocytes % 2.4 % (1.7-12.7); Neutrophils % 91.8 % (38.7-73.9); Platelet Count 147 T/CUMM (130-400); Red Blood Count 3.12 MC/CUMM (3.8-5.5); Red Cell Distribution Width 15.7 % (9.3-17.3); White Blood Count 15.4 T/CUMM (4-12)
[2021-02-19 04:13] LABS: ABG Base Excess 1.6 MMOL/L (-2.5-2.5); ABG Oxygen Saturation 99.4 % (95-100); ABG PCO2 25.3 MM HG (35-48); ABG PH 7.576 (7.35-7.45); ABG PO2 303.1 MM HG (80-95); ABG TCO2 23.8 MMOL/L (23-27)
[2021-02-19 04:17] LABS: INR 1.3; PT Patient Result 14.5 SECS (10.5-12.0)
[2021-02-19 04:25] LABS: Band Neutrophils 2 % (0-10); Hypochromasia 1+; Lymphocytes 8 % (20-55); Microcytosis 1+; Segmented Neutrophils 88 % (50-85); Total Cells Counted 100
[2021-02-19 04:26] LABS: Platelet Estimate Adequate; Target Cells Slight
[2021-02-19] MEDS: PIPERACILLIN/TAZOBACTAM 3,375 MG in SODIUM CHLORIDE 0.9% 100 ML IV SCH ×2 (05:47→18:23)
[2021-02-19] MEDS: DEXTROSE 5% NACL 0.9% 1,000 ML IV SCH ×2 (06:19→17:49)
[2021-02-19 07:00] LABS: Calcium 7.9 MG/DL (8.5-10.1); Osmolality,Calculated 271.1 MOS/KG (273-304); Potassium 3.6 MMOL/L (3.5-5.1)
[2021-02-19] MEDS: fentaNYL INJ 1,250 MCG in SODIUM CHLORIDE 0.9% 225 ML IV PRN (08:22)
[2021-02-19] MEDS ORDERED: PANTOPRAZOLE 40 MG TABLET PO SCH (09:00)
[2021-02-19] MEDS: SEVELAMER CARBONATE 800 MG TABLET PO SCH ×3 (09:27→18:23)
[2021-02-19] MEDS ORDERED: VANCOMYCIN INJ 750 MG in SODIUM CHLORIDE 0.9% 250 ML IV PRN (09:29)
[2021-02-19] MEDS: MIDAZOLAM 100 MG in SODIUM CHLORIDE 0.9% 80 ML IV PRN (10:41)
[2021-02-19] MEDS: PANTOPRAZOLE 40 MG VIAL IV SCH (10:45)
[2021-02-19] MEDS: INSULIN REGULAR 100 UNIT/ML SUBCUT SCH ×5 (12:34→22:59)
[2021-02-19] MEDS ORDERED: ROCURONIUM 50 MG/5 ML VIAL IV ONE (14:46)
[2021-02-19] MEDS ORDERED: MIDAZOLAM 2 MG/2 ML VIAL ONE ×2 (14:46→14:47)
[2021-02-19] MEDS ORDERED: SEVOFLURANE 1 UNIT/15 MINUTE INH ONE (15:30)
[2021-02-19] MEDS: INSULIN REGULAR DRIP 100 ML IV SCH (17:47)
[2021-02-20] MEDS: fentaNYL INJ 1,250 MCG in SODIUM CHLORIDE 0.9% 225 ML IV PRN ×2 (00:55→16:55)
[2021-02-20] MEDS: DEXTROSE 5% NACL 0.9% 1,000 ML IV SCH (02:54)
[2021-02-20] MEDS: INSULIN REGULAR 100 UNIT/ML SUBCUT SCH ×6 (03:40→20:03)
[2021-02-20] MEDS: CLINDAMYCIN INJ 900 MG/50 ML PREMIX IV SCH ×3 (03:40→17:08)
[2021-02-20] MEDS: HYDROCORTISONE 100 MG VIAL IV SCH ×3 (03:41→18:03)
[2021-02-20 04:20] LABS: ABG Base Excess -1.1 MMOL/L (-2.5-2.5); ABG HCO3 23.5 MMOL/L (20-26); ABG PCO2 25.4 MM HG (35-48); ABG PH 7.519 (7.35-7.45); ABG TCO2 18.6 MMOL/L (23-27)
[2021-02-20 04:36] LABS: Basophils % 0.1 % (0.0-0.8); Hematocrit 29.4 VOL% (35.7-47.0); Hemoglobin 10.1 GM/DL (12.0-16.0); Immature Granulocytes % 0.9 %; Immature Granulocytes Absolute 0.19 #; Lymphocytes % 4.8 % (21.3-54.2); Mean Corpuscular HGB Conc 34.4 GM/DL (32-36); Mean Corpuscular Volume 84.7 FL (87-102); Monocytes % 2.5 % (1.7-12.7); Neutrophils % 91.7 % (38.7-73.9); Platelet Count 171 T/CUMM (130-400); Red Blood Count 3.47 MC/CUMM (3.8-5.5); Red Cell Distribution Width 15.9 % (9.3-17.3); White Blood Count 20.3 T/CUMM (4-12)
[2021-02-20] MEDS: PIPERACILLIN/TAZOBACTAM 3,375 MG in SODIUM CHLORIDE 0.9% 100 ML IV SCH ×2 (04:37→17:08)
[2021-02-20 04:52] LABS: Alanine Aminotransferase < 6 U/L (13-56); Albumin 1.4 G/DL (3.4-5.0); Alkaline Phosphatase 139 U/L (45-117); Aspartate Amino Transferase 8 U/L (0-37); Blood Urea Nitrogen 57 MG/DL (7-18); Calcium 7.8 MG/DL (8.5-10.1); Carbon Dioxide 22 MMOL/L (21-32); Estimated Glom Filtration Rate 6 ML/MIN; Glucose 256 MG/DL (74-106); Osmolality,Calculated 279.2 MOS/KG (273-304); Sodium 127 MMOL/L (136-145); Total Protein 5.5 G/DL (6.4-8.2)
[2021-02-20 04:55] LABS: Hypochromasia Slight; Lymphocytes 2 % (20-55); Microcytosis Slight; Platelet Estimate Adequate; Segmented Neutrophils 97 % (50-85); Total Cells Counted 100
[2021-02-20] MEDS: PANTOPRAZOLE 40 MG VIAL IV SCH (08:33)
[2021-02-20] MEDS: SODIUM HYPOCHLORITE 0.25% IRRIG 473 ML BOTTLE TOP SCH (08:36)
[2021-02-20] MEDS: SEVELAMER CARBONATE 800 MG TABLET PO SCH ×3 (08:36→17:07)
[2021-02-20] MEDS: MIDAZOLAM 100 MG in SODIUM CHLORIDE 0.9% 80 ML IV PRN (08:37)
[2021-02-20] MEDS: SODIUM CHLORIDE 0.9% 1,000 ML IV SCH ×2 (10:02→19:14)
[2021-02-20] MEDS ORDERED: SODIUM CHLORIDE 0.9% 500 ML IV ONE (10:30)
[2021-02-20] MEDS ORDERED: NOREPINEPHRINE 8 MG in SODIUM CHLORIDE 0.9% 242 ML IV PRN (10:58)
[2021-02-20] MEDS ORDERED: NOREPINEPHRINE 4 MG/4 ML VIAL IV ONE (10:59)
[2021-02-20] MEDS ORDERED: DOPamine 800 MG/250 ML PREMIX IV ONE (14:57)
[2021-02-20] MEDS ORDERED: DOPamine 800 MG/250 ML PREMIX IV PRN (14:57)
[2021-02-20] MEDS ORDERED: ALBUMIN 25% 25 GM/100 ML VIAL IV ONE (16:12)
[2021-02-20] MEDS ORDERED: VANCOMYCIN INJ 750 MG in SODIUM CHLORIDE 0.9% 250 ML IV ONE (17:00)
[2021-02-20] MEDS: INSULIN REGULAR DRIP 100 ML IV SCH (17:00)
[2021-02-21] MEDS: INSULIN REGULAR 100 UNIT/ML SUBCUT SCH ×6 (01:00→20:21)
[2021-02-21] MEDS: CLINDAMYCIN INJ 900 MG/50 ML PREMIX IV SCH ×3 (01:01→16:35)
[2021-02-21] MEDS: HYDROCORTISONE 100 MG VIAL IV SCH ×2 (02:33→15:50)
[2021-02-21 03:58] LABS: ABG Base Excess -0.8 MMOL/L (-2.5-2.5); ABG HCO3 22.5 MMOL/L (20-26); ABG Oxygen Saturation 98.9 % (95-100); ABG PCO2 32.2 MM HG (35-48); ABG PH 7.463 (7.35-7.45); ABG PO2 163.1 MM HG (80-95); ABG TCO2 23.5 MMOL/L (23-27)
[2021-02-21 04:12] LABS: Basophils % 0.1 % (0.0-0.8); Hematocrit 27.7 VOL% (35.7-47.0); Hemoglobin 9.2 GM/DL (12.0-16.0); Immature Granulocytes % 0.9 %; Immature Granulocytes Absolute 0.13 #; Lymphocytes # 1.1 10*3/uL (1.4-4.0); Lymphocytes % 7.3 % (21.3-54.2); Mean Corpuscular HGB Conc 33.2 GM/DL (32-36); Mean Corpuscular Volume 87.1 FL (87-102); Mean Platelet Volume 11.5 FL (9.6-12.0); Neutrophils % 88.7 % (38.7-73.9); Platelet Count 173 T/CUMM (130-400); Red Blood Count 3.18 MC/CUMM (3.8-5.5); Red Cell Distribution Width 16.2 % (9.3-17.3); White Blood Count 14.5 T/CUMM (4-12)
[2021-02-21 04:27] LABS: Osmolality,Calculated 280.4 MOS/KG (273-304); Potassium 3.7 MMOL/L (3.5-5.1)
[2021-02-21] MEDS: fentaNYL INJ 1,250 MCG in SODIUM CHLORIDE 0.9% 225 ML IV PRN ×2 (05:09→16:27)
[2021-02-21] MEDS: MIDAZOLAM 100 MG in SODIUM CHLORIDE 0.9% 80 ML IV PRN (05:26)
[2021-02-21] MEDS: PIPERACILLIN/TAZOBACTAM 3,375 MG in SODIUM CHLORIDE 0.9% 100 ML IV SCH ×2 (05:26→16:35)
[2021-02-21] MEDS: SODIUM CHLORIDE 0.9% 1,000 ML IV SCH ×2 (06:12→15:30)
[2021-02-21] MEDS: PANTOPRAZOLE 40 MG VIAL IV SCH (08:40)
[2021-02-21] MEDS: SEVELAMER CARBONATE 800 MG TABLET PO SCH ×3 (08:49→16:01)
[2021-02-21] MEDS: SODIUM HYPOCHLORITE 0.25% IRRIG 473 ML BOTTLE TOP SCH (08:49)
[2021-02-21] MEDS: INSULIN REGULAR DRIP 100 ML IV SCH (16:36)
[2021-02-22] MEDS: INSULIN REGULAR 100 UNIT/ML SUBCUT SCH ×6 (00:43→21:33)
[2021-02-22] MEDS: CLINDAMYCIN INJ 900 MG/50 ML PREMIX IV SCH (02:52)
[2021-02-22] MEDS: HYDROCORTISONE 100 MG VIAL IV SCH ×2 (02:52→17:06)
[2021-02-22] MEDS: SODIUM CHLORIDE 0.9% 1,000 ML IV SCH ×3 (02:52→23:03)
[2021-02-22 04:19] LABS: ABG Base Excess -2.3 MMOL/L (-2.5-2.5); ABG HCO3 22.5 MMOL/L (20-26); ABG Oxygen Saturation 99.5 % (95-100); ABG PCO2 30.5 MM HG (35-48); ABG PH 7.446 (7.35-7.45); ABG TCO2 19.1 MMOL/L (23-27)
[2021-02-22 04:30] LABS: Basophils % 0.2 % (0.0-0.8); Hematocrit 29.1 VOL% (35.7-47.0); Hemoglobin 9.7 GM/DL (12.0-16.0); Immature Granulocytes % 1.5 %; Immature Granulocytes Absolute 0.16 #; Lymphocytes # 1.1 10*3/uL (1.4-4.0); Lymphocytes % 10.1 % (21.3-54.2); Mean Corpuscular HGB Conc 33.3 GM/DL (32-36); Mean Corpuscular Volume 87.4 FL (87-102); Mean Platelet Volume 11.9 FL (9.6-12.0); NRBC # 0.03 10*3/uL; Neutrophils % 83.2 % (38.7-73.9); Platelet Count 182 T/CUMM (130-400); Red Blood Count 3.33 MC/CUMM (3.8-5.5); Red Cell Distribution Width 16.5 % (9.3-17.3); White Blood Count 10.9 T/CUMM (4-12)
[2021-02-22] MEDS: PIPERACILLIN/TAZOBACTAM 3,375 MG in SODIUM CHLORIDE 0.9% 100 ML IV SCH (04:30)
[2021-02-22 04:53] LABS: Osmolality,Calculated 284.4 MOS/KG (273-304); Potassium 4.1 MMOL/L (3.5-5.1)
[2021-02-22] MEDS: SODIUM HYPOCHLORITE 0.25% IRRIG 473 ML BOTTLE TOP SCH (09:04)
[2021-02-22] MEDS: PANTOPRAZOLE 40 MG VIAL IV SCH (09:10)
[2021-02-22] MEDS: SEVELAMER CARBONATE 800 MG TABLET PO SCH ×3 (09:10→17:48)
[2021-02-22] MEDS ORDERED: VANCOMYCIN INJ 750 MG in SODIUM CHLORIDE 0.9% 250 ML IV PRN (09:39)
[2021-02-22] MEDS: DEXMEDETOMIDINE 200 MCG in SODIUM CHLORIDE 0.9% 48 ML IV PRN ×2 (12:31→21:45)
[2021-02-22] MEDS: INSULIN REGULAR DRIP 100 ML IV SCH (17:36)
[2021-02-22] MEDS: VANCOMYCIN INJ 750 MG in SODIUM CHLORIDE 0.9% 250 ML IV SCH (18:06)
[2021-02-23] MEDS: MORPHINE 4 MG/1 ML VIAL IV PRN (00:01)
[2021-02-23] MEDS: hydrALAZINE 20 MG/1 ML VIAL IV PRN (01:15)
[2021-02-23] MEDS: INSULIN REGULAR 100 UNIT/ML SUBCUT SCH ×6 (01:18→21:07)
[2021-02-23 03:58] LABS: ABG Base Excess -1.2 MMOL/L (-2.5-2.5); ABG HCO3 23.5 MMOL/L (20-26); ABG Oxygen Saturation 98.9 % (95-100); ABG PCO2 38.5 MM HG (35-48); ABG PH 7.393 (7.35-7.45); ABG TCO2 21.1 MMOL/L (23-27)
[2021-02-23 04:27] LABS: Basophils # 0.1 10*3/uL (0.0-0.2); Basophils % 0.4 % (0.0-0.8); Eosinophils % 0.1 % (0.00-10.9); Hematocrit 33.8 VOL% (35.7-47.0); Immature Granulocytes % 2.9 %; Lymphocytes # 1.2 10*3/uL (1.4-4.0); Lymphocytes % 7.1 % (21.3-54.2); Mean Corpuscular HGB Conc 32.5 GM/DL (32-36); Mean Corpuscular Volume 89.9 FL (87-102); Mean Platelet Volume 11.4 FL (9.6-12.0); Monocytes % 5.7 % (1.7-12.7); Neutrophils % 83.8 % (38.7-73.9); Platelet Count 228 T/CUMM (130-400); Red Blood Count 3.76 MC/CUMM (3.8-5.5); White Blood Count 17.4 T/CUMM (4-12)
[2021-02-23] MEDS: HYDROCORTISONE 100 MG VIAL IV SCH ×2 (04:31→16:20)
[2021-02-23 05:05] LABS: Calcium 8.4 MG/DL (8.5-10.1); Osmolality,Calculated 286.8 MOS/KG (273-304); Potassium 3.8 MMOL/L (3.5-5.1)
[2021-02-23] MEDS: DEXMEDETOMIDINE 200 MCG in SODIUM CHLORIDE 0.9% 48 ML IV PRN ×2 (07:34→15:20)
[2021-02-23] MEDS: SODIUM CHLORIDE 0.9% 1,000 ML IV SCH ×2 (07:50→18:32)
[2021-02-23] MEDS: SODIUM HYPOCHLORITE 0.25% IRRIG 473 ML BOTTLE TOP SCH (08:28)
[2021-02-23] MEDS: PANTOPRAZOLE 40 MG VIAL IV SCH (08:28)
[2021-02-23] MEDS: SEVELAMER CARBONATE 800 MG TABLET PO SCH ×3 (08:28→16:20)
[2021-02-23] MEDS: VANCOMYCIN INJ 750 MG in SODIUM CHLORIDE 0.9% 250 ML IV SCH (16:21)
[2021-02-23] MEDS: INSULIN REGULAR DRIP 100 ML IV SCH (17:38)
[2021-02-24] MEDS: INSULIN REGULAR 100 UNIT/ML SUBCUT SCH ×6 (00:52→21:17)
[2021-02-24] MEDS: HYDROCORTISONE 100 MG VIAL IV SCH ×2 (04:09→15:50)
[2021-02-24 05:14] LABS: Basophils % 0.2 % (0.0-0.8); Eosinophils # 0.1 10*3/uL (0.0-0.87); Eosinophils % 0.9 % (0.00-10.9); Hemoglobin 10.8 GM/DL (12.0-16.0); Immature Granulocytes % 2.9 %; Immature Granulocytes Absolute 0.45 #; Lymphocytes # 1.7 10*3/uL (1.4-4.0); Lymphocytes % 10.9 % (21.3-54.2); Mean Corpuscular HGB Conc 31.8 GM/DL (32-36); Mean Corpuscular Volume 91.6 FL (87-102); Mean Platelet Volume 11.2 FL (9.6-12.0); NRBC # 0.19 10*3/uL; Neutrophils % 78.1 % (38.7-73.9); Platelet Count 222 T/CUMM (130-400); Red Blood Count 3.71 MC/CUMM (3.8-5.5); Red Cell Distribution Width 16.6 % (9.3-17.3); White Blood Count 15.5 T/CUMM (4-12)
[2021-02-24 05:15] LABS: ABG Base Excess -3.1 MMOL/L (-2.5-2.5); ABG HCO3 21.5 MMOL/L (20-26); ABG Oxygen Saturation 97.8 % (95-100); ABG PCO2 36.5 MM HG (35-48); ABG PH 7.387 (7.35-7.45); ABG PO2 116.2 MM HG (80-95); ABG TCO2 22.6 MMOL/L (23-27)
[2021-02-24 05:26] LABS: Calcium 8.2 MG/DL (8.5-10.1); Osmolality,Calculated 288.8 MOS/KG (273-304); Potassium 3.9 MMOL/L (3.5-5.1)
[2021-02-24] MEDS: DEXMEDETOMIDINE 200 MCG in SODIUM CHLORIDE 0.9% 48 ML IV PRN (06:01)
[2021-02-24] MEDS: SODIUM CHLORIDE 0.9% 1,000 ML IV SCH (06:02)
[2021-02-24] MEDS: SODIUM HYPOCHLORITE 0.25% IRRIG 473 ML BOTTLE TOP SCH (08:53)
[2021-02-24] MEDS: DEXTROSE 5% NACL 0.45% 1,000 ML IV SCH (09:10)
[2021-02-24] MEDS: PANTOPRAZOLE 40 MG VIAL IV SCH (09:15)
[2021-02-24] MEDS: SEVELAMER CARBONATE 800 MG TABLET PO SCH ×3 (09:15→17:13)
[2021-02-24] MEDS: hydrALAZINE 20 MG/1 ML VIAL IV PRN ×2 (15:51→21:16)
[2021-02-24] MEDS: VANCOMYCIN INJ 750 MG in SODIUM CHLORIDE 0.9% 250 ML IV SCH (17:10)
[2021-02-24] MEDS: INSULIN REGULAR DRIP 100 ML IV SCH (18:40)
[2021-02-24] MEDS ORDERED: ONDANSETRON 4 MG/2 ML VIAL ONE (20:10)
[2021-02-24] MEDS ORDERED: ONDANSETRON 4 MG/2 ML VIAL IV PRN (20:28)
[2021-02-24] MEDS: MORPHINE 4 MG/1 ML VIAL IV PRN (22:47)
[2021-02-25] MEDS: INSULIN REGULAR 100 UNIT/ML SUBCUT SCH ×6 (00:29→20:57)
[2021-02-25 03:08] LABS: ABG Base Excess -2.7 MMOL/L (-2.5-2.5); ABG HCO3 22.3 MMOL/L (20-26); ABG PCO2 39.3 MM HG (35-48); ABG PH 7.371 (7.35-7.45); ABG PO2 181.6 MM HG (80-95); ABG TCO2 23.5 MMOL/L (23-27)
[2021-02-25] MEDS: HYDROCORTISONE 100 MG VIAL IV SCH ×2 (04:12→15:50)
[2021-02-25 04:21] LABS: Basophils # 0.1 10*3/uL (0.0-0.2); Basophils % 0.4 % (0.0-0.8); Eosinophils % 0.1 % (0.00-10.9); Hematocrit 37.5 VOL% (35.7-47.0); Hemoglobin 12.4 GM/DL (12.0-16.0); Immature Granulocytes % 4.1 %; Immature Granulocytes Absolute 1.05 #; Lymphocytes # 1.5 10*3/uL (1.4-4.0); Lymphocytes % 5.6 % (21.3-54.2); Mean Corpuscular HGB Conc 33.1 GM/DL (32-36); Mean Corpuscular Volume 89.3 FL (87-102); Mean Platelet Volume 11.3 FL (9.6-12.0); Monocytes % 5.1 % (1.7-12.7); Neutrophils % 84.7 % (38.7-73.9); Platelet Count 334 T/CUMM (130-400); White Blood Count 25.9 T/CUMM (4-12)
[2021-02-25 04:49] LABS: Calcium 8.4 MG/DL (8.5-10.1); Osmolality,Calculated 290.2 MOS/KG (273-304)
[2021-02-25 04:52] LABS: Lymphocytes 3 % (20-55); Platelet Estimate Normal; Segmented Neutrophils 92 % (50-85); Total Cells Counted 100
[2021-02-25] MEDS: DEXTROSE 5% NACL 0.45% 1,000 ML IV SCH (05:52)
[2021-02-25] MEDS: PANTOPRAZOLE 40 MG VIAL IV SCH (08:50)
[2021-02-25] MEDS: SEVELAMER CARBONATE 800 MG TABLET PO SCH ×3 (08:50→17:08)
[2021-02-25] MEDS: carvediloL 25 MG TABLET PO SCH ×2 (10:38→20:57)
[2021-02-25] MEDS: hydrALAZINE 20 MG/1 ML VIAL IV PRN (15:30)
[2021-02-25] MEDS: MORPHINE 4 MG/1 ML VIAL IV PRN (16:58)
[2021-02-25] MEDS: SODIUM HYPOCHLORITE 0.25% IRRIG 473 ML BOTTLE TOP SCH (16:58)
[2021-02-26] MEDS: INSULIN REGULAR 100 UNIT/ML SUBCUT SCH ×6 (01:16→20:56)
[2021-02-26 04:12] LABS: Basophils % 0.3 % (0.0-0.8); Eosinophils % 0.2 % (0.00-10.9); Hematocrit 31.5 VOL% (35.7-47.0); Hemoglobin 10.5 GM/DL (12.0-16.0); Immature Granulocytes % 4.3 %; Immature Granulocytes Absolute 0.67 #; Lymphocytes # 0.9 10*3/uL (1.4-4.0); Lymphocytes % 5.7 % (21.3-54.2); Mean Corpuscular HGB Conc 33.3 GM/DL (32-36); Mean Platelet Volume 10.9 FL (9.6-12.0); Monocytes % 4.3 % (1.7-12.7); NRBC # 0.16 10*3/uL; Neutrophils % 85.2 % (38.7-73.9); Red Cell Distribution Width 18.2 % (9.3-17.3)
[2021-02-26 04:22] LABS: Platelet Count 256 T/CUMM (130-400); White Blood Count 15.5 T/CUMM (4-12)
[2021-02-26 04:38] LABS: Calcium 7.8 MG/DL (8.5-10.1); Osmolality,Calculated 290.2 MOS/KG (273-304); Potassium 3.7 MMOL/L (3.5-5.1)
[2021-02-26 04:41] LABS: Hypochromasia 1+; Lymphocytes 10 % (20-55); Microcytosis 1+; Segmented Neutrophils 83 % (50-85); Total Cells Counted 100
[2021-02-26 04:42] LABS: Polychromasia Slight; Target Cells Slight
[2021-02-26] MEDS: HYDROCORTISONE 100 MG VIAL IV SCH ×2 (04:42→20:56)
[2021-02-26 04:48] LABS: ABG Base Excess -1.7 MMOL/L (-2.5-2.5); ABG Oxygen Saturation 98.9 % (95-100); ABG PCO2 37.9 MM HG (35-48); ABG PH 7.389 (7.35-7.45); ABG TCO2 20.7 MMOL/L (23-27); Allen Test Positive
[2021-02-26] MEDS: DEXTROSE 5% NACL 0.45% 1,000 ML IV SCH (06:28)
[2021-02-26] MEDS: SEVELAMER CARBONATE 800 MG TABLET PO SCH ×3 (08:16→16:15)
[2021-02-26] MEDS: PANTOPRAZOLE 40 MG VIAL IV SCH (08:16)
[2021-02-26] MEDS: carvediloL 25 MG TABLET PO SCH ×2 (08:16→20:56)
[2021-02-26] MEDS: SODIUM HYPOCHLORITE 0.25% IRRIG 473 ML BOTTLE TOP SCH (09:06)
[2021-02-26] MEDS: INSULIN NPH/REGULAR 70/30 100 UNIT/ML SUBCUT SCH ×2 (13:04→19:50)
[2021-02-27 06:32] LABS: Basophils % 0.2 % (0.0-0.8); Eosinophils # 0.1 10*3/uL (0.0-0.87); Eosinophils % 0.5 % (0.00-10.9); Hematocrit 31.8 VOL% (35.7-47.0); Hemoglobin 10.1 GM/DL (12.0-16.0); Immature Granulocytes % 3.2 %; Immature Granulocytes Absolute 0.42 #; Lymphocytes % 7.8 % (21.3-54.2); Mean Corpuscular HGB Conc 31.8 GM/DL (32-36); Mean Corpuscular Volume 91.9 FL (87-102); Mean Platelet Volume 10.7 FL (9.6-12.0); Monocytes % 4.3 % (1.7-12.7); NRBC # 0.06 10*3/uL; Platelet Count 280 T/CUMM (130-400); Red Blood Count 3.46 MC/CUMM (3.8-5.5); Red Cell Distribution Width 18.6 % (9.3-17.3); White Blood Count 13.1 T/CUMM (4-12)
[2021-02-27 06:48] LABS: Calcium 7.9 MG/DL (8.5-10.1); Osmolality,Calculated 284.5 MOS/KG (273-304); Potassium 4.1 MMOL/L (3.5-5.1)
[2021-02-27] MEDS: INSULIN REGULAR 100 UNIT/ML SUBCUT SCH ×3 (08:55→18:15)
[2021-02-27] MEDS: INSULIN NPH/REGULAR 70/30 100 UNIT/ML SUBCUT SCH ×2 (08:56→18:15)
[2021-02-27] MEDS: HYDROCORTISONE 100 MG VIAL IV SCH (08:58)
[2021-02-27] MEDS: SEVELAMER CARBONATE 800 MG TABLET PO SCH ×3 (09:04→18:14)
[2021-02-27] MEDS: PANTOPRAZOLE 40 MG VIAL IV SCH (09:05)
[2021-02-27] MEDS ORDERED: VANCOMYCIN INJ 750 MG in SODIUM CHLORIDE 0.9% 250 ML IV ONE (14:35)
[2021-02-27] MEDS: carvediloL 25 MG TABLET PO SCH (14:46)
[2021-02-27 15:56] VITALS: BP 128/56
[2021-02-27] MEDS: SODIUM HYPOCHLORITE 0.25% IRRIG 473 ML BOTTLE TOP SCH (17:00)
== END 2021-02-27 18:25 | DRG 853 ==
LOC: EDUNIT# → EDBD → N.ED 13:32 → N.EDINP 15:51 → N.CC 16:31 → N.3E 02-26 10:01
PROVIDERS: ADMIT Surgery; ATTEND Surgery

== ENCOUNTER 2021-03-31 20:08 | Inpatient (IN) ==
[2021-03-31 22:05] LABS: Basophils % 0.6 % (0.0-0.8); Eosinophils # 0.1 10*3/uL (0.0-0.87); Hematocrit 29.3 VOL% (35.7-47.0); Hemoglobin 9.2 GM/DL (12.0-16.0); Immature Granulocytes % 0.4 %; Immature Granulocytes Absolute 0.02 #; Lymphocytes # 0.8 10*3/uL (1.4-4.0); Lymphocytes % 17.6 % (21.3-54.2); Mean Corpuscular HGB Conc 31.4 GM/DL (32-36); Mean Corpuscular Volume 93.3 FL (87-102); Mean Platelet Volume 10.6 FL (9.6-12.0); Monocytes % 9.9 % (1.7-12.7); Neutrophils % 68.5 % (38.7-73.9); Platelet Count 149 T/CUMM (130-400); Red Blood Count 3.14 MC/CUMM (3.8-5.5); Red Cell Distribution Width 17.9 % (9.3-17.3); White Blood Count 4.7 T/CUMM (4-12)
[2021-03-31 22:29] LABS: Albumin 2.6 G/DL (3.4-5.0); Bilirubin,Total 0.7 MG/DL (0.2-1.0); Calcium 8.1 MG/DL (8.5-10.1); Osmolality,Calculated 317.8 MOS/KG (273-304); Potassium 4.6 MMOL/L (3.5-5.1); Total Protein 6.8 G/DL (6.4-8.2)
[2021-03-31] MEDS ORDERED: ONDANSETRON 4 MG/2 ML VIAL IV PRN (22:52)
[2021-03-31] MEDS ORDERED: DEXTROSE 5% NACL 0.45% 1,000 ML IV SCH (23:00)
[2021-03-31] MEDS ORDERED: PIPERACILLIN/TAZOBACTAM 3,375 MG in SODIUM CHLORIDE 0.9% 100 ML IV SCH (23:30)
[2021-04-01 06:30] LABS: Basophils % 0.5 % (0.0-0.8); Eosinophils # 0.2 10*3/uL (0.0-0.87); Eosinophils % 2.7 % (0.00-10.9); Hematocrit 29.2 VOL% (35.7-47.0); Hemoglobin 9.3 GM/DL (12.0-16.0); Immature Granulocytes % 0.4 %; Immature Granulocytes Absolute 0.02 #; Lymphocytes % 17.7 % (21.3-54.2); Mean Corpuscular HGB Conc 31.8 GM/DL (32-36); Mean Corpuscular Volume 93.9 FL (87-102); Mean Platelet Volume 10.2 FL (9.6-12.0); Monocytes % 10.2 % (1.7-12.7); Neutrophils % 68.5 % (38.7-73.9); Platelet Count 136 T/CUMM (130-400); Red Blood Count 3.11 MC/CUMM (3.8-5.5); White Blood Count 5.5 T/CUMM (4-12)
[2021-04-01 07:07] LABS: Albumin 2.4 G/DL (3.4-5.0); Bilirubin,Total 0.8 MG/DL (0.2-1.0); Calcium 8.3 MG/DL (8.5-10.1); Osmolality,Calculated 315.5 MOS/KG (273-304); Potassium 4.8 MMOL/L (3.5-5.1); Total Protein 6.6 G/DL (6.4-8.2)
[2021-04-01] MEDS ORDERED: GLUCAGON 1 MG VIAL IM PRN (07:21)
[2021-04-01] MEDS ORDERED: DEXTROSE 50% 25 GM/50 ML VIAL IV PRN (07:21)
[2021-04-01] MEDS ORDERED: hydrALAZINE 20 MG/1 ML VIAL IV PRN (07:22)
[2021-04-01] MEDS ORDERED: VANCOMYCIN INJ 1,000 MG in SODIUM CHLORIDE 0.9% 250 ML IV SCH (07:30)
[2021-04-01] MEDS ORDERED: VANCOMYCIN INJ 750 MG in SODIUM CHLORIDE 0.9% 250 ML IV PRN (07:39)
[2021-04-01] MEDS ORDERED: VANCOMYCIN INJ 2,000 MG in SODIUM CHLORIDE 0.9% 500 ML IV ONE (08:30)
[2021-04-01] MEDS: INSULIN REGULAR 100 UNIT/ML SUBCUT SCH ×4 (09:19→21:20)
[2021-04-01] MEDS: PANTOPRAZOLE 40 MG VIAL IV SCH (09:19)
[2021-04-01] MEDS ORDERED: MAGNESIUM HYDROXIDE SUSP 30 ML UDCUP PO PRN ×2 (17:35→18:10)
[2021-04-01] MEDS: ACETAMINOPHEN 325 MG TABLET PO PRN (18:33)
[2021-04-01] MEDS: PIPERACILLIN/TAZOBACTAM 3,375 MG in SODIUM CHLORIDE 0.9% 100 ML IV SCH (23:56)
[2021-04-02] MEDS: INSULIN REGULAR 100 UNIT/ML SUBCUT SCH ×4 (08:03→21:15)
[2021-04-02] MEDS: PANTOPRAZOLE 40 MG VIAL IV SCH (08:19)
[2021-04-02] MEDS ORDERED: fentaNYL 100 MCG/2 ML VIAL ONE (08:24)
[2021-04-02] MEDS ORDERED: MIDAZOLAM 2 MG/2 ML VIAL ONE ×2 (08:24→09:40)
[2021-04-02] MEDS ORDERED: LIDOCAINE 2% 5 ML VIAL ONE (08:24)
[2021-04-02] MEDS ORDERED: propofoL 200 MG/20 ML VIAL IV ONE (08:24)
[2021-04-02] MEDS ORDERED: LIDOCAINE 1% 20 ML VIAL ONE (08:31)
[2021-04-02] MEDS ORDERED: FAMOTIDINE 20 MG/2 ML VIAL IV ONE (08:56)
[2021-04-02 09:18] LABS: Calcium 8.3 MG/DL (8.5-10.1); Potassium 4.3 MMOL/L (3.5-5.1)
[2021-04-02] MEDS ORDERED: ETOMIDATE 40 MG/20 ML VIAL IV ONE (09:29)
[2021-04-02] MEDS ORDERED: SODIUM CHLORIDE 0.9% 250 ML IV SCH (09:30)
[2021-04-02] MEDS ORDERED: ONDANSETRON 4 MG/2 ML VIAL ONE (09:43)
[2021-04-02] MEDS: PIPERACILLIN/TAZOBACTAM 3,375 MG in SODIUM CHLORIDE 0.9% 100 ML IV SCH ×2 (11:44→22:36)
[2021-04-03 05:22] LABS: Basophils % 0.5 % (0.0-0.8); Eosinophils # 0.2 10*3/uL (0.0-0.87); Eosinophils % 3.2 % (0.00-10.9); Hemoglobin 9.4 GM/DL (12.0-16.0); Immature Granulocytes % 0.4 %; Immature Granulocytes Absolute 0.02 #; Lymphocytes # 1.2 10*3/uL (1.4-4.0); Lymphocytes % 21.6 % (21.3-54.2); Mean Corpuscular HGB Conc 31.3 GM/DL (32-36); Mean Corpuscular Volume 94.3 FL (87-102); Mean Platelet Volume 10.8 FL (9.6-12.0); Monocytes % 12.3 % (1.7-12.7); Platelet Count 126 T/CUMM (130-400); Red Blood Count 3.18 MC/CUMM (3.8-5.5); Red Cell Distribution Width 18.1 % (9.3-17.3); White Blood Count 5.6 T/CUMM (4-12)
[2021-04-03 05:50] LABS: Calcium 8.4 MG/DL (8.5-10.1); Osmolality,Calculated 285.4 MOS/KG (273-304); Potassium 5.1 MMOL/L (3.5-5.1)
[2021-04-03 05:54] LABS: Platelet Estimate Adequate
[2021-04-03 05:55] LABS: Anisocytosis 2+; Hypochromasia 1+; Macrocytosis 1+; Target Cells Few
[2021-04-03] MEDS: INSULIN REGULAR 100 UNIT/ML SUBCUT SCH ×4 (08:19→21:42)
[2021-04-03] MEDS: PANTOPRAZOLE 40 MG VIAL IV SCH (08:19)
[2021-04-03] MEDS: ACETAMINOPHEN 325 MG TABLET PO PRN (15:38)
[2021-04-03] MEDS: PIPERACILLIN/TAZOBACTAM 3,375 MG in SODIUM CHLORIDE 0.9% 100 ML IV SCH (15:39)
[2021-04-03] MEDS: amLODIPine 10 MG TABLET PO SCH (15:39)
[2021-04-03] MEDS ORDERED: VANCOMYCIN INJ 750 MG in SODIUM CHLORIDE 0.9% 250 ML IV ONE ×2 (17:00→21:00)
[2021-04-03] MEDS: SODIUM HYPOCHLORITE 0.25% IRRIG 473 ML BOTTLE TOP SCH (18:07)
[2021-04-03] MEDS: SEVELAMER CARBONATE 800 MG TABLET PO SCH (18:08)
[2021-04-03] MEDS: carvediloL 12.5 MG TABLET PO SCH (21:42)
[2021-04-04] MEDS: PIPERACILLIN/TAZOBACTAM 3,375 MG in SODIUM CHLORIDE 0.9% 100 ML IV SCH ×3 (00:18→23:50)
[2021-04-04 05:11] LABS: Basophils % 0.6 % (0.0-0.8); Eosinophils # 0.2 10*3/uL (0.0-0.87); Eosinophils % 3.8 % (0.00-10.9); Immature Granulocytes % 0.6 %; Immature Granulocytes Absolute 0.03 #; Lymphocytes # 1.7 10*3/uL (1.4-4.0); Lymphocytes % 32.6 % (21.3-54.2); Mean Corpuscular HGB Conc 32.1 GM/DL (32-36); Mean Corpuscular Volume 93.6 FL (87-102); Mean Platelet Volume 10.4 FL (9.6-12.0); Monocytes % 13.3 % (1.7-12.7); Neutrophils % 49.1 % (38.7-73.9); Platelet Count 134 T/CUMM (130-400); Red Blood Count 2.99 MC/CUMM (3.8-5.5); Red Cell Distribution Width 17.7 % (9.3-17.3); White Blood Count 5.3 T/CUMM (4-12)
[2021-04-04 05:34] LABS: Calcium 8.1 MG/DL (8.5-10.1); Potassium 4.5 MMOL/L (3.5-5.1)
[2021-04-04 05:34] LABS: Hypochromasia 1+; Microcytosis 1+
[2021-04-04] MEDS: carvediloL 12.5 MG TABLET PO SCH ×2 (08:14→21:13)
[2021-04-04] MEDS: PANTOPRAZOLE 40 MG VIAL IV SCH (08:14)
[2021-04-04] MEDS: SEVELAMER CARBONATE 800 MG TABLET PO SCH ×3 (08:14→17:20)
[2021-04-04] MEDS: ACETAMINOPHEN 325 MG TABLET PO PRN (08:14)
[2021-04-04] MEDS: amLODIPine 10 MG TABLET PO SCH (08:14)
[2021-04-04] MEDS: SODIUM HYPOCHLORITE 0.25% IRRIG 473 ML BOTTLE TOP SCH (08:15)
[2021-04-04] MEDS: INSULIN REGULAR 100 UNIT/ML SUBCUT SCH ×4 (08:15→21:13)
[2021-04-04] MEDS: PARoxetine 10 MG TABLET PO SCH (08:19)
[2021-04-04] MEDS ORDERED: ZINC OXIDE PASTE 113 GM TUBE TOP PRN (11:38)
[2021-04-04] MEDS: DIPHENOXYLATE/ATROPINE 2.5-0.025 MG TABLET PO PRN (16:15)
[2021-04-05 07:21] LABS: Basophils % 0.4 % (0.0-0.8); Eosinophils # 0.2 10*3/uL (0.0-0.87); Eosinophils % 3.8 % (0.00-10.9); Hematocrit 26.8 VOL% (35.7-47.0); Hemoglobin 8.5 GM/DL (12.0-16.0); Immature Granulocytes % 0.7 %; Immature Granulocytes Absolute 0.04 #; Lymphocytes # 1.3 10*3/uL (1.4-4.0); Lymphocytes % 23.4 % (21.3-54.2); Mean Corpuscular HGB Conc 31.7 GM/DL (32-36); Mean Platelet Volume 10.4 FL (9.6-12.0); Monocytes % 9.5 % (1.7-12.7); Neutrophils % 62.2 % (38.7-73.9); Platelet Count 110 T/CUMM (130-400); Red Blood Count 2.85 MC/CUMM (3.8-5.5); Red Cell Distribution Width 17.7 % (9.3-17.3); White Blood Count 5.5 T/CUMM (4-12)
[2021-04-05 07:36] LABS: Calcium 8.3 MG/DL (8.5-10.1); Osmolality,Calculated 282.7 MOS/KG (273-304); Potassium 4.2 MMOL/L (3.5-5.1)
[2021-04-05 08:27] LABS: Platelet Estimate Adequate
[2021-04-05] MEDS: carvediloL 12.5 MG TABLET PO SCH ×2 (09:23→22:29)
[2021-04-05] MEDS: INSULIN REGULAR 100 UNIT/ML SUBCUT SCH ×4 (09:23→22:52)
[2021-04-05] MEDS: SEVELAMER CARBONATE 800 MG TABLET PO SCH ×3 (09:23→16:52)
[2021-04-05] MEDS: amLODIPine 10 MG TABLET PO SCH (09:24)
[2021-04-05] MEDS: PARoxetine 10 MG TABLET PO SCH (09:24)
[2021-04-05] MEDS: PANTOPRAZOLE 40 MG VIAL IV SCH (09:26)
[2021-04-05] MEDS: PIPERACILLIN/TAZOBACTAM 3,375 MG in SODIUM CHLORIDE 0.9% 100 ML IV SCH (16:46)
[2021-04-05] MEDS: SODIUM HYPOCHLORITE 0.25% IRRIG 473 ML BOTTLE TOP SCH (19:00)
[2021-04-05] MEDS: ACETAMINOPHEN 325 MG TABLET PO PRN (22:29)
[2021-04-06] MEDS: PIPERACILLIN/TAZOBACTAM 3,375 MG in SODIUM CHLORIDE 0.9% 100 ML IV SCH ×2 (05:25→15:46)
[2021-04-06] MEDS: SEVELAMER CARBONATE 800 MG TABLET PO SCH ×3 (09:19→16:58)
[2021-04-06] MEDS: PANTOPRAZOLE 40 MG VIAL IV SCH (09:19)
[2021-04-06] MEDS: PARoxetine 10 MG TABLET PO SCH (09:20)
[2021-04-06] MEDS: carvediloL 12.5 MG TABLET PO SCH ×2 (09:20→21:33)
[2021-04-06] MEDS: amLODIPine 10 MG TABLET PO SCH (09:20)
[2021-04-06] MEDS: INSULIN REGULAR 100 UNIT/ML SUBCUT SCH ×4 (09:34→22:06)
[2021-04-06] MEDS: SODIUM HYPOCHLORITE 0.25% IRRIG 473 ML BOTTLE TOP SCH (11:00)
[2021-04-07] MEDS: PIPERACILLIN/TAZOBACTAM 3,375 MG in SODIUM CHLORIDE 0.9% 100 ML IV SCH ×2 (03:31→16:11)
[2021-04-07 06:33] LABS: Basophils % 0.5 % (0.0-0.8); Eosinophils # 0.2 10*3/uL (0.0-0.87); Eosinophils % 3.6 % (0.00-10.9); Hematocrit 28.1 VOL% (35.7-47.0); Hemoglobin 8.8 GM/DL (12.0-16.0); Immature Granulocytes % 0.5 %; Immature Granulocytes Absolute 0.03 #; Lymphocytes # 1.5 10*3/uL (1.4-4.0); Lymphocytes % 27.1 % (21.3-54.2); Mean Corpuscular HGB Conc 31.3 GM/DL (32-36); Mean Corpuscular Volume 94.9 FL (87-102); Mean Platelet Volume 10.3 FL (9.6-12.0); Monocytes % 9.5 % (1.7-12.7); Neutrophils % 58.8 % (38.7-73.9); Platelet Count 140 T/CUMM (130-400); Red Blood Count 2.96 MC/CUMM (3.8-5.5); Red Cell Distribution Width 17.6 % (9.3-17.3); White Blood Count 5.6 T/CUMM (4-12)
[2021-04-07 07:07] LABS: Calcium 8.7 MG/DL (8.5-10.1); Osmolality,Calculated 275.8 MOS/KG (273-304); Potassium 4.8 MMOL/L (3.5-5.1)
[2021-04-07] MEDS: INSULIN REGULAR 100 UNIT/ML SUBCUT SCH ×4 (07:46→21:56)
[2021-04-07] MEDS: PARoxetine 10 MG TABLET PO SCH (09:16)
[2021-04-07] MEDS: amLODIPine 10 MG TABLET PO SCH (09:16)
[2021-04-07] MEDS: SEVELAMER CARBONATE 800 MG TABLET PO SCH ×3 (09:16→16:11)
[2021-04-07] MEDS: carvediloL 12.5 MG TABLET PO SCH ×2 (09:16→21:56)
[2021-04-07] MEDS: PANTOPRAZOLE 40 MG VIAL IV SCH (09:17)
[2021-04-07] MEDS: SODIUM HYPOCHLORITE 0.25% IRRIG 473 ML BOTTLE TOP SCH (10:34)
[2021-04-07] MEDS: COLLAGENASE OINT 30 GM TUBE TOP SCH (10:34)
[2021-04-07] MEDS: DIPHENOXYLATE/ATROPINE 2.5-0.025 MG TABLET PO PRN ×2 (12:50→16:40)
[2021-04-08] MEDS: PIPERACILLIN/TAZOBACTAM 3,375 MG in SODIUM CHLORIDE 0.9% 100 ML IV SCH ×2 (03:02→16:06)
[2021-04-08] MEDS: INSULIN REGULAR 100 UNIT/ML SUBCUT SCH ×4 (07:35→20:32)
[2021-04-08] MEDS: SODIUM HYPOCHLORITE 0.25% IRRIG 473 ML BOTTLE TOP SCH (08:40)
[2021-04-08] MEDS: COLLAGENASE OINT 30 GM TUBE TOP SCH (08:40)
[2021-04-08] MEDS: SEVELAMER CARBONATE 800 MG TABLET PO SCH ×3 (09:30→17:32)
[2021-04-08] MEDS: PANTOPRAZOLE 40 MG VIAL IV SCH (09:31)
[2021-04-08] MEDS: carvediloL 12.5 MG TABLET PO SCH ×2 (14:04→20:34)
[2021-04-08] MEDS: amLODIPine 10 MG TABLET PO SCH (14:04)
[2021-04-08] MEDS: PARoxetine 10 MG TABLET PO SCH (14:05)
[2021-04-09] MEDS: PIPERACILLIN/TAZOBACTAM 3,375 MG in SODIUM CHLORIDE 0.9% 100 ML IV SCH (04:10)
[2021-04-09 07:28] VITALS: BP 101/52
[2021-04-09] MEDS: INSULIN REGULAR 100 UNIT/ML SUBCUT SCH ×2 (07:52→11:36)
[2021-04-09] MEDS: SEVELAMER CARBONATE 800 MG TABLET PO SCH ×2 (08:51→11:36)
[2021-04-09] MEDS: PARoxetine 10 MG TABLET PO SCH (08:52)
[2021-04-09] MEDS: carvediloL 12.5 MG TABLET PO SCH (08:53)
[2021-04-09] MEDS: SODIUM HYPOCHLORITE 0.25% IRRIG 473 ML BOTTLE TOP SCH (08:54)
[2021-04-09] MEDS: amLODIPine 10 MG TABLET PO SCH (08:54)
[2021-04-09] MEDS: PANTOPRAZOLE 40 MG VIAL IV SCH (08:54)
[2021-04-09] MEDS: COLLAGENASE OINT 30 GM TUBE TOP SCH (08:55)
== END 2021-04-09 12:10 | disposition home health service (06) | DRG 239 ==
LOC: EDUNIT# → EDBD → N.ED 20:08 → N.EDINP 22:51 → N.3E 04-01 03:54
PROVIDERS: ADMIT Surgery; ATTEND Surgery

== ENCOUNTER 2021-05-14 22:48 | Inpatient (IN) ==
[2021-05-15] MEDS ORDERED: PIPERACILLIN/TAZOBACTAM 3,375 MG in SODIUM CHLORIDE 0.9% 100 ML IV STA (00:06)
[2021-05-15 00:13] LABS: Basophils # 0.1 10*3/uL (0.0-0.2); Basophils % 0.3 % (0.0-0.8); Eosinophils % 0.1 % (0.00-10.9); Hematocrit 37.6 VOL% (35.7-47.0); Hemoglobin 11.3 GM/DL (12.0-16.0); Immature Granulocytes % 3.1 %; Immature Granulocytes Absolute 1.18 #; Lymphocytes % 2.5 % (21.3-54.2); Mean Corpuscular HGB Conc 30.1 GM/DL (32-36); Mean Corpuscular Volume 95.2 FL (87-102); Mean Platelet Volume 10.2 FL (9.6-12.0); Monocytes % 3.1 % (1.7-12.7); Neutrophils % 90.9 % (38.7-73.9); Platelet Count 181 T/CUMM (130-400); Red Blood Count 3.95 MC/CUMM (3.8-5.5); Red Cell Distribution Width 14.6 % (9.3-17.3); White Blood Count 37.9 T/CUMM (4-12)
[2021-05-15 00:27] LABS: Alanine Aminotransferase 10 U/L (13-56); Albumin 2.4 G/DL (3.4-5.0); Alkaline Phosphatase 185 U/L (45-117); Aspartate Amino Transferase 23 U/L (0-37); Blood Urea Nitrogen 13 MG/DL (7-18); Calcium 8.6 MG/DL (8.5-10.1); Carbon Dioxide 28 MMOL/L (21-32); Estimated Glom Filtration Rate 9 ML/MIN; Glucose 134 MG/DL (74-106); Osmolality,Calculated 284.1 MOS/KG (273-304); Potassium 3.3 MMOL/L (3.5-5.1); Sodium 142 MMOL/L (136-145); Total Protein 7.1 G/DL (6.4-8.2)
[2021-05-15] MEDS ORDERED: VANCOMYCIN INJ 1,000 MG in SODIUM CHLORIDE 0.9% 250 ML IV ONE ×2 (00:51→03:00)
[2021-05-15] MEDS ORDERED: ACETAMINOPHEN 325 MG TABLET PO PRN (00:53)
[2021-05-15] MEDS ORDERED: GLUCAGON 1 MG VIAL IM PRN (00:53)
[2021-05-15] MEDS ORDERED: DEXTROSE 50% 25 GM/50 ML VIAL IV PRN ×2 (00:53→01:03)
[2021-05-15] MEDS ORDERED: SEVELAMER CARBONATE 800 MG TABLET PO SCH (01:30)
[2021-05-15] MEDS ORDERED: VANCOMYCIN INJ 750 MG in SODIUM CHLORIDE 0.9% 250 ML IV PRN (01:51)
[2021-05-15] MEDS ORDERED: VANCOMYCIN INJ 2,000 MG in SODIUM CHLORIDE 0.9% 500 ML IV ONE (03:00)
[2021-05-15 06:18] LABS: Alanine Aminotransferase < 9 U/L (13-56); Albumin 2.3 G/DL (3.4-5.0); Alkaline Phosphatase 154 U/L (45-117); Aspartate Amino Transferase 21 U/L (0-37); Blood Urea Nitrogen 17 MG/DL (7-18); Calcium 8.6 MG/DL (8.5-10.1); Carbon Dioxide 29 MMOL/L (21-32); Estimated Glom Filtration Rate 8 ML/MIN; Glucose 151 MG/DL (74-106); Potassium 3.4 MMOL/L (3.5-5.1); Sodium 136 MMOL/L (136-145); Total Protein 6.4 G/DL (6.4-8.2)
[2021-05-15] MEDS ORDERED: SODIUM CHLORIDE 0.9% 250 ML IV ONE (06:34)
[2021-05-15 06:51] LABS: Basophils # 0.1 10*3/uL (0.0-0.2); Basophils % 0.3 % (0.0-0.8); Hematocrit 39.4 VOL% (35.7-47.0); Hemoglobin 11.9 GM/DL (12.0-16.0); Immature Granulocytes % 2.5 %; Immature Granulocytes Absolute 0.89 #; Lymphocytes # 0.8 10*3/uL (1.4-4.0); Lymphocytes % 2.2 % (21.3-54.2); Mean Corpuscular HGB Conc 30.2 GM/DL (32-36); Mean Corpuscular Volume 94.7 FL (87-102); Mean Platelet Volume 10.1 FL (9.6-12.0); Monocytes % 2.4 % (1.7-12.7); Neutrophils % 92.6 % (38.7-73.9); Platelet Count 178 T/CUMM (130-400); Red Blood Count 4.16 MC/CUMM (3.8-5.5); Red Cell Distribution Width 14.7 % (9.3-17.3); White Blood Count 35.6 T/CUMM (4-12)
[2021-05-15 06:54] LABS: Hemoglobin A1C 6.2 % (4.2-6.3)
[2021-05-15 06:59] LABS: Vancomycin,Random 26.9 UG/ML
[2021-05-15 07:12] LABS: Anisocytosis 2+; Band Neutrophils 27 % (0-10); Lymphocytes 3 % (20-55); Macrocytosis 1+; Platelet Estimate Normal; Segmented Neutrophils 68 % (50-85); Total Cells Counted 100
[2021-05-15] MEDS: PARoxetine 10 MG TABLET PO SCH (09:00)
[2021-05-15] MEDS: PANTOPRAZOLE 40 MG TABLET PO SCH (09:00)
[2021-05-15] MEDS: SEVELAMER CARBONATE 800 MG TABLET PO SCH ×3 (09:00→17:34)
[2021-05-15] MEDS: INSULIN LISPRO 100 UNIT/ML SUBCUT SCH ×2 (09:01→17:07)
[2021-05-15] MEDS: HEPARIN 5,000 UNIT/1 ML VIAL SUBCUT SCH ×2 (09:02→21:18)
[2021-05-15] MEDS ORDERED: VANCOMYCIN INJ 750 MG in SODIUM CHLORIDE 0.9% 250 ML IV ONE (17:00)
[2021-05-15] MEDS: PIPERACILLIN/TAZOBACTAM 3,375 MG in SODIUM CHLORIDE 0.9% 100 ML IV SCH (17:02)
[2021-05-15] MEDS: INSULIN GLARGINE 100 UNIT/ML SUBCUT SCH (21:18)
[2021-05-16] MEDS: PIPERACILLIN/TAZOBACTAM 3,375 MG in SODIUM CHLORIDE 0.9% 100 ML IV SCH ×2 (00:38→15:39)
[2021-05-16 06:08] LABS: Basophils # 0.1 10*3/uL (0.0-0.2); Basophils % 0.3 % (0.0-0.8); Eosinophils # 0.2 10*3/uL (0.0-0.87); Eosinophils % 1.2 % (0.00-10.9); Hematocrit 31.6 VOL% (35.7-47.0); Immature Granulocytes % 0.7 %; Immature Granulocytes Absolute 0.12 #; Lymphocytes # 1.8 10*3/uL (1.4-4.0); Lymphocytes % 10.6 % (21.3-54.2); Mean Corpuscular HGB Conc 29.4 GM/DL (32-36); Mean Corpuscular Volume 95.5 FL (87-102); Mean Platelet Volume 10.3 FL (9.6-12.0); Monocytes % 6.3 % (1.7-12.7); Neutrophils % 80.9 % (38.7-73.9); Platelet Count 164 T/CUMM (130-400); Red Cell Distribution Width 14.7 % (9.3-17.3)
[2021-05-16 06:09] LABS: White Blood Count 17.2 T/CUMM (4-12)
[2021-05-16 06:10] LABS: Hemoglobin 9.3 GM/DL (12.0-16.0); Red Blood Count 3.31 MC/CUMM (3.8-5.5)
[2021-05-16 06:21] LABS: Potassium 3.5 MMOL/L (3.5-5.1)
[2021-05-16] MEDS: INSULIN LISPRO 100 UNIT/ML SUBCUT SCH ×2 (08:23→17:52)
[2021-05-16] MEDS: SEVELAMER CARBONATE 800 MG TABLET PO SCH ×3 (11:03→17:52)
[2021-05-16] MEDS: HEPARIN 5,000 UNIT/1 ML VIAL SUBCUT SCH ×2 (15:38→21:29)
[2021-05-16] MEDS: PARoxetine 10 MG TABLET PO SCH (15:39)
[2021-05-16] MEDS: PANTOPRAZOLE 40 MG TABLET PO SCH (15:39)
[2021-05-16] MEDS: MENTHOL/ZINC OXIDE OINT 71 GM JAR TOP SCH ×2 (17:52→21:28)
[2021-05-16] MEDS: OLOPATADINE 0.1% OPH SOLN 5 ML BOTTLE BOTH EYES SCH (21:28)
[2021-05-16] MEDS: INSULIN GLARGINE 100 UNIT/ML SUBCUT SCH (21:29)
[2021-05-17] MEDS: PIPERACILLIN/TAZOBACTAM 3,375 MG in SODIUM CHLORIDE 0.9% 100 ML IV SCH ×3 (00:45→23:50)
[2021-05-17 06:33] LABS: Basophils % 0.5 % (0.0-0.8); Eosinophils # 0.3 10*3/uL (0.0-0.87); Eosinophils % 3.9 % (0.00-10.9); Hematocrit 32.4 VOL% (35.7-47.0); Hemoglobin 9.7 GM/DL (12.0-16.0); Immature Granulocytes % 0.6 %; Immature Granulocytes Absolute 0.05 #; Lymphocytes # 1.6 10*3/uL (1.4-4.0); Lymphocytes % 19.8 % (21.3-54.2); Mean Corpuscular HGB Conc 29.9 GM/DL (32-36); Mean Platelet Volume 11.3 FL (9.6-12.0); Monocytes % 9.9 % (1.7-12.7); Neutrophils % 65.3 % (38.7-73.9); Red Blood Count 3.41 MC/CUMM (3.8-5.5); Red Cell Distribution Width 14.6 % (9.3-17.3)
[2021-05-17 06:44] LABS: Platelet Count 122 T/CUMM (130-400)
[2021-05-17 06:58] LABS: Anisocytosis 1+; Platelet Estimate Adequate; Target Cells Few
[2021-05-17 06:59] LABS: Macrocytosis Slight
[2021-05-17 07:06] LABS: Calcium 9.1 MG/DL (8.5-10.1); Potassium 3.9 MMOL/L (3.5-5.1)
[2021-05-17] MEDS: INSULIN LISPRO 100 UNIT/ML SUBCUT SCH ×2 (07:31→17:43)
[2021-05-17] MEDS ORDERED: GLUCAGON 1 MG VIAL IM PRN (08:21)
[2021-05-17] MEDS ORDERED: DEXTROSE 50% 25 GM/50 ML VIAL IV PRN (08:21)
[2021-05-17] MEDS: PARoxetine 10 MG TABLET PO SCH (08:35)
[2021-05-17] MEDS: MENTHOL/ZINC OXIDE OINT 71 GM JAR TOP SCH ×2 (08:35→21:35)
[2021-05-17] MEDS: HEPARIN 5,000 UNIT/1 ML VIAL SUBCUT SCH ×2 (08:35→21:38)
[2021-05-17] MEDS: OLOPATADINE 0.1% OPH SOLN 5 ML BOTTLE BOTH EYES SCH ×2 (08:35→21:35)
[2021-05-17] MEDS: PANTOPRAZOLE 40 MG TABLET PO SCH (08:35)
[2021-05-17] MEDS: SEVELAMER CARBONATE 800 MG TABLET PO SCH ×3 (08:35→17:47)
[2021-05-17] MEDS ORDERED: VANCOMYCIN INJ 750 MG in SODIUM CHLORIDE 0.9% 250 ML IV ONE (15:30)
[2021-05-17] MEDS: INSULIN GLARGINE 100 UNIT/ML SUBCUT SCH (21:35)
[2021-05-18 06:33] LABS: Basophils # 0.1 10*3/uL (0.0-0.2); Basophils % 0.9 % (0.0-0.8); Eosinophils # 0.3 10*3/uL (0.0-0.87); Eosinophils % 4.1 % (0.00-10.9); Hematocrit 34.7 VOL% (35.7-47.0); Hemoglobin 10.3 GM/DL (12.0-16.0); Immature Granulocytes % 0.6 %; Immature Granulocytes Absolute 0.04 #; Lymphocytes # 1.9 10*3/uL (1.4-4.0); Mean Corpuscular HGB Conc 29.7 GM/DL (32-36); Mean Corpuscular Volume 94.8 FL (87-102); Mean Platelet Volume 11.6 FL (9.6-12.0); Monocytes % 8.7 % (1.7-12.7); Neutrophils % 57.7 % (38.7-73.9); Platelet Count 142 T/CUMM (130-400); Red Blood Count 3.66 MC/CUMM (3.8-5.5); Red Cell Distribution Width 14.6 % (9.3-17.3); White Blood Count 6.8 T/CUMM (4-12)
[2021-05-18 06:55] LABS: Osmolality,Calculated 270.2 MOS/KG (273-304); Potassium 4.3 MMOL/L (3.5-5.1)
[2021-05-18] MEDS: INSULIN LISPRO 100 UNIT/ML SUBCUT SCH ×2 (09:02→17:28)
[2021-05-18] MEDS: PANTOPRAZOLE 40 MG TABLET PO SCH (09:03)
[2021-05-18] MEDS: HEPARIN 5,000 UNIT/1 ML VIAL SUBCUT SCH ×2 (09:03→20:36)
[2021-05-18] MEDS: SEVELAMER CARBONATE 800 MG TABLET PO SCH ×3 (09:03→17:34)
[2021-05-18] MEDS: PARoxetine 10 MG TABLET PO SCH (09:03)
[2021-05-18] MEDS: MENTHOL/ZINC OXIDE OINT 71 GM JAR TOP SCH ×2 (09:03→20:18)
[2021-05-18] MEDS: OLOPATADINE 0.1% OPH SOLN 5 ML BOTTLE BOTH EYES SCH ×2 (09:04→20:19)
[2021-05-18] MEDS: PIPERACILLIN/TAZOBACTAM 3,375 MG in SODIUM CHLORIDE 0.9% 100 ML IV SCH (13:31)
[2021-05-18] MEDS ORDERED: hydrALAZINE 20 MG/1 ML VIAL IV PRN (14:41)
[2021-05-18] MEDS: INSULIN GLARGINE 100 UNIT/ML SUBCUT SCH (20:19)
[2021-05-19] MEDS: PIPERACILLIN/TAZOBACTAM 3,375 MG in SODIUM CHLORIDE 0.9% 100 ML IV SCH ×2 (00:17→12:08)
[2021-05-19 06:01] LABS: Basophils # 0.1 10*3/uL (0.0-0.2); Basophils % 0.9 % (0.0-0.8); Eosinophils # 0.4 10*3/uL (0.0-0.87); Eosinophils % 5.6 % (0.00-10.9); Hematocrit 34.6 VOL% (35.7-47.0); Hemoglobin 10.3 GM/DL (12.0-16.0); Immature Granulocytes % 2.1 %; Immature Granulocytes Absolute 0.14 #; Lymphocytes # 2.6 10*3/uL (1.4-4.0); Lymphocytes % 39.2 % (21.3-54.2); Mean Corpuscular HGB Conc 29.8 GM/DL (32-36); Mean Corpuscular Volume 93.5 FL (87-102); Mean Platelet Volume 10.7 FL (9.6-12.0); Monocytes % 10.8 % (1.7-12.7); Neutrophils % 41.4 % (38.7-73.9); Platelet Count 168 T/CUMM (130-400); Red Cell Distribution Width 14.5 % (9.3-17.3); White Blood Count 6.7 T/CUMM (4-12)
[2021-05-19 06:36] LABS: Calcium 9.3 MG/DL (8.5-10.1); Potassium 4.4 MMOL/L (3.5-5.1)
[2021-05-19 06:37] LABS: Calcium 9.1 MG/DL (8.5-10.1); Potassium 4.4 MMOL/L (3.5-5.1)
[2021-05-19] MEDS: INSULIN LISPRO 100 UNIT/ML SUBCUT SCH ×2 (07:03→16:14)
[2021-05-19] MEDS: SEVELAMER CARBONATE 800 MG TABLET PO SCH ×3 (08:31→17:11)
[2021-05-19] MEDS: HEPARIN 5,000 UNIT/1 ML VIAL SUBCUT SCH (08:31)
[2021-05-19] MEDS: PARoxetine 10 MG TABLET PO SCH (08:31)
[2021-05-19] MEDS: MENTHOL/ZINC OXIDE OINT 71 GM JAR TOP SCH ×2 (08:32→20:31)
[2021-05-19] MEDS: OLOPATADINE 0.1% OPH SOLN 5 ML BOTTLE BOTH EYES SCH ×2 (08:32→20:31)
[2021-05-19] MEDS: PANTOPRAZOLE 40 MG TABLET PO SCH (08:32)
[2021-05-19] MEDS ORDERED: DIPHENOXYLATE/ATROPINE 2.5-0.025 MG TABLET PO PRN (14:25)
[2021-05-19] MEDS ORDERED: VANCOMYCIN INJ 750 MG in SODIUM CHLORIDE 0.9% 250 ML IV ONE (17:00)
[2021-05-19] MEDS: INSULIN GLARGINE 100 UNIT/ML SUBCUT SCH (20:31)
[2021-05-19] MEDS: CHOLESTYRAMINE/ASPARTAME 4 GM PACK PO SCH (22:07)
[2021-05-20] MEDS: PIPERACILLIN/TAZOBACTAM 3,375 MG in SODIUM CHLORIDE 0.9% 100 ML IV SCH ×3 (00:16→23:58)
[2021-05-20 05:44] LABS: Basophils # 0.1 10*3/uL (0.0-0.2); Eosinophils # 0.6 10*3/uL (0.0-0.87); Hematocrit 34.1 VOL% (35.7-47.0); Hemoglobin 10.5 GM/DL (12.0-16.0); Immature Granulocytes % 3.2 %; Immature Granulocytes Absolute 0.29 #; Lymphocytes # 2.8 10*3/uL (1.4-4.0); Lymphocytes % 31.2 % (21.3-54.2); Mean Corpuscular HGB Conc 30.8 GM/DL (32-36); Mean Corpuscular Volume 92.9 FL (87-102); Mean Platelet Volume 10.7 FL (9.6-12.0); Monocytes % 9.7 % (1.7-12.7); NRBC # 0.05 10*3/uL; Neutrophils % 48.9 % (38.7-73.9); Platelet Count 208 T/CUMM (130-400); Red Blood Count 3.67 MC/CUMM (3.8-5.5); Red Cell Distribution Width 14.6 % (9.3-17.3); White Blood Count 9.1 T/CUMM (4-12)
[2021-05-20 06:14] LABS: Calcium 9.4 MG/DL (8.5-10.1); Osmolality,Calculated 271.2 MOS/KG (273-304); Potassium 4.2 MMOL/L (3.5-5.1)
[2021-05-20] MEDS ORDERED: fentaNYL 100 MCG/2 ML VIAL ONE (08:10)
[2021-05-20] MEDS ORDERED: LIDOCAINE 2% 5 ML VIAL ONE (08:10)
[2021-05-20] MEDS ORDERED: propofoL 200 MG/20 ML VIAL IV ONE (08:10)
[2021-05-20] MEDS ORDERED: MIDAZOLAM 2 MG/2 ML VIAL ONE (08:10)
[2021-05-20] MEDS: OLOPATADINE 0.1% OPH SOLN 5 ML BOTTLE BOTH EYES SCH ×2 (08:15→21:36)
[2021-05-20] MEDS: MENTHOL/ZINC OXIDE OINT 71 GM JAR TOP SCH ×2 (08:15→21:36)
[2021-05-20] MEDS: INSULIN LISPRO 100 UNIT/ML SUBCUT SCH ×2 (08:24→17:34)
[2021-05-20] MEDS ORDERED: PHENYLEPHRINE 1 MG/10 ML SYRINGE IV ONE (08:42)
[2021-05-20] MEDS ORDERED: FAMOTIDINE 20 MG/2 ML VIAL IV ONE (08:42)
[2021-05-20] MEDS ORDERED: PHENYLEPHRINE DRIP 20 MG/250 ML PREMIX IV ONE (08:42)
[2021-05-20] MEDS ORDERED: EPINEPHrine 1 MG/ML VIAL ONE (08:42)
[2021-05-20] MEDS ORDERED: SODIUM CHLORIDE 0.9% 250 ML IV SCH (09:00)
[2021-05-20] MEDS ORDERED: ETOMIDATE 40 MG/20 ML VIAL IV ONE (09:38)
[2021-05-20] MEDS ORDERED: SEVOFLURANE 1 UNIT/15 MINUTE INH ONE ×4 (09:38→11:28)
[2021-05-20] MEDS ORDERED: ONDANSETRON 4 MG/2 ML VIAL ONE (09:39)
[2021-05-20] MEDS ORDERED: SUCCINYLCHOLINE 200 MG/10 ML VIAL ONE (10:22)
[2021-05-20] MEDS ORDERED: ONDANSETRON 4 MG/2 ML VIAL IV PRN ×2 (10:51→11:56)
[2021-05-20] MEDS ORDERED: HYDROmorphone 2 MG/1 ML VIAL IV PRN ×2 (10:51→11:56)
[2021-05-20] MEDS ORDERED: ALBUTEROL/IPRATROPIUM 3 ML NEB RESP TX PRN (11:56)
[2021-05-20] MEDS ORDERED: BISACODYL 5 MG TABLET PO PRN (11:56)
[2021-05-20] MEDS: SEVELAMER CARBONATE 800 MG TABLET PO SCH ×3 (12:01→17:35)
[2021-05-20] MEDS: PARoxetine 10 MG TABLET PO SCH (12:01)
[2021-05-20] MEDS: CHOLESTYRAMINE/ASPARTAME 4 GM PACK PO SCH ×2 (12:02→21:41)
[2021-05-20] MEDS: PANTOPRAZOLE 40 MG TABLET PO SCH (12:02)
[2021-05-20] MEDS: INSULIN GLARGINE 100 UNIT/ML SUBCUT SCH (21:33)
[2021-05-20] MEDS: HYDROmorphone 2 MG/1 ML VIAL IV PRN (21:34)
[2021-05-21 06:48] LABS: Basophils # 0.1 10*3/uL (0.0-0.2); Basophils % 0.8 % (0.0-0.8); Eosinophils # 0.8 10*3/uL (0.0-0.87); Eosinophils % 7.1 % (0.00-10.9); Hematocrit 32.8 VOL% (35.7-47.0); Hemoglobin 9.7 GM/DL (12.0-16.0); Immature Granulocytes % 2.6 %; Immature Granulocytes Absolute 0.28 #; Lymphocytes # 2.4 10*3/uL (1.4-4.0); Lymphocytes % 22.6 % (21.3-54.2); Mean Corpuscular HGB Conc 29.6 GM/DL (32-36); Mean Corpuscular Volume 95.6 FL (87-102); Mean Platelet Volume 10.6 FL (9.6-12.0); Monocytes % 7.5 % (1.7-12.7); NRBC # 0.08 10*3/uL; Neutrophils % 59.4 % (38.7-73.9); Platelet Count 222 T/CUMM (130-400); Red Blood Count 3.43 MC/CUMM (3.8-5.5); Red Cell Distribution Width 15.1 % (9.3-17.3); White Blood Count 10.7 T/CUMM (4-12)
[2021-05-21 07:10] LABS: Osmolality,Calculated 272.4 MOS/KG (273-304); Potassium 4.7 MMOL/L (3.5-5.1)
[2021-05-21 08:14] LABS: Band Neutrophils 1 % (0-10); Eosinophils 9 % (0-10); Hypochromasia 1+; Lymphocytes 17 % (20-55); Microcytosis 1+; Ovalocytes Slight; Platelet Estimate Normal; Segmented Neutrophils 69 % (50-85); Total Cells Counted 100
[2021-05-21] MEDS: INSULIN LISPRO 100 UNIT/ML SUBCUT SCH ×2 (08:32→18:35)
[2021-05-21] MEDS: PARoxetine 10 MG TABLET PO SCH (08:34)
[2021-05-21] MEDS: SEVELAMER CARBONATE 800 MG TABLET PO SCH ×3 (08:34→18:35)
[2021-05-21] MEDS: MENTHOL/ZINC OXIDE OINT 71 GM JAR TOP SCH ×2 (08:34→21:27)
[2021-05-21] MEDS: PANTOPRAZOLE 40 MG TABLET PO SCH (08:34)
[2021-05-21] MEDS: OLOPATADINE 0.1% OPH SOLN 5 ML BOTTLE BOTH EYES SCH ×2 (08:35→21:41)
[2021-05-21] MEDS: CHOLESTYRAMINE/ASPARTAME 4 GM PACK PO SCH ×2 (09:55→21:27)
[2021-05-21] MEDS: PIPERACILLIN/TAZOBACTAM 3,375 MG in SODIUM CHLORIDE 0.9% 100 ML IV SCH (11:15)
[2021-05-21] MEDS: HYDROmorphone 2 MG/1 ML VIAL IV PRN ×2 (11:40→21:41)
[2021-05-21] MEDS ORDERED: VANCOMYCIN INJ 750 MG in SODIUM CHLORIDE 0.9% 250 ML IV ONE (17:00)
[2021-05-21] MEDS ORDERED: TUBERCULIN SKIN TEST 0.1 ML SYRINGE INTRADERM ONE (17:14)
[2021-05-21] MEDS: INSULIN GLARGINE 100 UNIT/ML SUBCUT SCH (21:27)
[2021-05-22] MEDS: PIPERACILLIN/TAZOBACTAM 3,375 MG in SODIUM CHLORIDE 0.9% 100 ML IV SCH ×2 (00:06→14:37)
[2021-05-22 05:20] LABS: Basophils # 0.1 10*3/uL (0.0-0.2); Basophils % 0.5 % (0.0-0.8); Eosinophils # 0.7 10*3/uL (0.0-0.87); Eosinophils % 7.5 % (0.00-10.9); Hematocrit 29.2 VOL% (35.7-47.0); Hemoglobin 9.1 GM/DL (12.0-16.0); Immature Granulocytes % 1.7 %; Immature Granulocytes Absolute 0.16 #; Lymphocytes # 1.9 10*3/uL (1.4-4.0); Lymphocytes % 20.5 % (21.3-54.2); Mean Corpuscular HGB Conc 31.2 GM/DL (32-36); Mean Corpuscular Volume 92.7 FL (87-102); Mean Platelet Volume 9.9 FL (9.6-12.0); NRBC # 0.02 10*3/uL; Neutrophils % 59.8 % (38.7-73.9); Platelet Count 231 T/CUMM (130-400); Red Blood Count 3.15 MC/CUMM (3.8-5.5); Red Cell Distribution Width 15.7 % (9.3-17.3); White Blood Count 9.2 T/CUMM (4-12)
[2021-05-22 05:48] LABS: Calcium 8.6 MG/DL (8.5-10.1); Potassium 4.4 MMOL/L (3.5-5.1)
[2021-05-22] MEDS: INSULIN LISPRO 100 UNIT/ML SUBCUT SCH ×2 (07:37→19:12)
[2021-05-22] MEDS: HEPARIN 5,000 UNIT/1 ML VIAL SUBCUT SCH ×2 (11:24→22:19)
[2021-05-22] MEDS: PANTOPRAZOLE 40 MG TABLET PO SCH (11:25)
[2021-05-22] MEDS: PARoxetine 10 MG TABLET PO SCH (11:25)
[2021-05-22] MEDS: CHOLESTYRAMINE/ASPARTAME 4 GM PACK PO SCH ×2 (11:25→22:18)
[2021-05-22] MEDS: OLOPATADINE 0.1% OPH SOLN 5 ML BOTTLE BOTH EYES SCH ×2 (11:25→22:20)
[2021-05-22] MEDS: SEVELAMER CARBONATE 800 MG TABLET PO SCH ×3 (11:26→17:34)
[2021-05-22] MEDS: MENTHOL/ZINC OXIDE OINT 71 GM JAR TOP SCH ×2 (11:26→22:19)
[2021-05-22] MEDS: GABAPENTIN 100 MG CAPSULE PO SCH ×2 (13:58→22:18)
[2021-05-22] MEDS ORDERED: BACLOFEN 10 MG TABLET PO SCH (15:00)
[2021-05-22] MEDS: BACLOFEN 10 MG TABLET PO SCH (22:18)
[2021-05-22] MEDS: INSULIN GLARGINE 100 UNIT/ML SUBCUT SCH (22:19)
[2021-05-23] MEDS: PIPERACILLIN/TAZOBACTAM 3,375 MG in SODIUM CHLORIDE 0.9% 100 ML IV SCH ×2 (00:20→12:00)
[2021-05-23 06:04] LABS: Basophils # 0.1 10*3/uL (0.0-0.2); Basophils % 0.6 % (0.0-0.8); Eosinophils # 0.5 10*3/uL (0.0-0.87); Eosinophils % 6.5 % (0.00-10.9); Hematocrit 29.7 VOL% (35.7-47.0); Hemoglobin 9.1 GM/DL (12.0-16.0); Immature Granulocytes % 0.6 %; Immature Granulocytes Absolute 0.05 #; Lymphocytes # 2.2 10*3/uL (1.4-4.0); Lymphocytes % 27.3 % (21.3-54.2); Mean Corpuscular HGB Conc 30.6 GM/DL (32-36); Mean Corpuscular Volume 92.2 FL (87-102); Monocytes % 8.7 % (1.7-12.7); Neutrophils % 56.3 % (38.7-73.9); Platelet Count 236 T/CUMM (130-400); Red Blood Count 3.22 MC/CUMM (3.8-5.5); Red Cell Distribution Width 15.9 % (9.3-17.3); White Blood Count 7.9 T/CUMM (4-12)
[2021-05-23 06:18] LABS: Calcium 8.5 MG/DL (8.5-10.1); Osmolality,Calculated 267.5 MOS/KG (273-304); Potassium 4.8 MMOL/L (3.5-5.1)
[2021-05-23] MEDS: INSULIN LISPRO 100 UNIT/ML SUBCUT SCH (08:02)
[2021-05-23] MEDS: SEVELAMER CARBONATE 800 MG TABLET PO SCH ×2 (08:20→13:31)
[2021-05-23 08:30] VITALS: BP 165/61
[2021-05-23] MEDS: MENTHOL/ZINC OXIDE OINT 71 GM JAR TOP SCH (09:00)
[2021-05-23] MEDS: HEPARIN 5,000 UNIT/1 ML VIAL SUBCUT SCH (09:00)
[2021-05-23] MEDS: BACLOFEN 10 MG TABLET PO SCH (09:00)
[2021-05-23] MEDS: GABAPENTIN 100 MG CAPSULE PO SCH (09:00)
[2021-05-23] MEDS: OLOPATADINE 0.1% OPH SOLN 5 ML BOTTLE BOTH EYES SCH (09:00)
[2021-05-23] MEDS: CHOLESTYRAMINE/ASPARTAME 4 GM PACK PO SCH (10:00)
[2021-05-23] MEDS: PARoxetine 10 MG TABLET PO SCH (13:31)
[2021-05-23] MEDS: PANTOPRAZOLE 40 MG TABLET PO SCH (13:31)
== END 2021-05-23 13:40 | DRG 853 ==
LOC: EDBD → EDUNIT# → N.ED 22:48 → N.EDINP 05-15 00:53 → SUATTDRO 05-15 00:53 → N.3E 05-15 01:27
PROVIDERS: ADMIT Hospitalist; ATTEND Internal Medicine

== ENCOUNTER 2022-03-24 15:03 | Inpatient (IN) ==
[2022-03-24] MEDS ORDERED: DEXTROSE 50% 25 GM/50 ML VIAL IV PRN (18:05)
[2022-03-24] MEDS ORDERED: GLUCAGON 1 MG VIAL IM PRN (18:05)
[2022-03-24] MEDS ORDERED: ONDANSETRON 4 MG/2 ML VIAL IV PRN (18:05)
[2022-03-24] MEDS ORDERED: DEXTROSE 10% 250 ML BAG IV PRN (18:12)
[2022-03-24] MEDS: hydrALAZINE 20 MG/1 ML VIAL IV PRN (19:08)
[2022-03-24] MEDS: HEPARIN 5,000 UNIT/1 ML VIAL SUBCUT SCH (20:31)
[2022-03-24] MEDS: INSULIN REGULAR 100 UNIT/ML SUBCUT SCH (21:06)
[2022-03-25] MEDS: HEPARIN 5,000 UNIT/1 ML VIAL SUBCUT SCH ×3 (05:14→20:49)
[2022-03-25 07:33] LABS: Albumin 2.9 G/DL (3.4-5.0); Bilirubin,Total 0.6 MG/DL (0.20-1.00); Calcium 9.2 MG/DL (8.5-10.1); Potassium 2.9 MMOL/L (3.5-5.1); Total Protein 6.9 G/DL (6.4-8.2)
[2022-03-25 08:00] LABS: Basophils % 0.4 % (0.0-0.8); Eosinophils # 0.1 10*3/uL (0.0-0.87); Eosinophils % 1.2 % (0.00-10.9); Hematocrit 37.6 VOL% (35.7-47.0); Hemoglobin 12.3 GM/DL (12.0-16.0); Immature Granulocytes % 0.3 %; Immature Granulocytes Absolute 0.03 #; Lymphocytes # 2.2 10*3/uL (1.4-4.0); Lymphocytes % 20.7 % (21.3-54.2); Mean Corpuscular HGB Conc 32.7 GM/DL (32-36); Mean Corpuscular Volume 90.8 FL (87-102); Mean Platelet Volume 10.9 FL (9.6-12.0); Monocytes # 0.6 10*3/uL (0.11-0.8); Monocytes % 5.2 % (1.7-12.7); Neutrophils % 72.2 % (38.7-73.9); Platelet Count 158 T/CUMM (130-400); Red Blood Count 4.14 MC/CUMM (3.8-5.5); Red Cell Distribution Width 13.5 % (9.3-17.3); White Blood Count 10.5 T/CUMM (4-12)
[2022-03-25] MEDS: INSULIN REGULAR 100 UNIT/ML SUBCUT SCH ×4 (08:13→21:32)
[2022-03-25] MEDS: hydrALAZINE 20 MG/1 ML VIAL IV PRN (08:14)
[2022-03-25] MEDS: PANTOPRAZOLE 40 MG TABLET PO SCH (08:14)
[2022-03-25] MEDS ORDERED: POTASSIUM CHLORIDE 20 MEQ TABLET PO ONE (09:15)
[2022-03-25] MEDS: MENTHOL/ZINC OXIDE OINT 71 GM JAR TOP SCH ×2 (14:58→21:32)
[2022-03-25] MEDS: ZALEPLON 5 MG CAPSULE PO PRN (22:31)
[2022-03-26] MEDS: hydrALAZINE 20 MG/1 ML VIAL IV PRN (01:23)
[2022-03-26] MEDS: ACETAMINOPHEN 325 MG TABLET PO PRN ×2 (01:23→21:06)
[2022-03-26] MEDS: HEPARIN 5,000 UNIT/1 ML VIAL SUBCUT SCH ×2 (04:23→17:35)
[2022-03-26 05:28] LABS: Basophils % 0.4 % (0.0-0.8); Eosinophils # 0.1 10*3/uL (0.0-0.87); Eosinophils % 0.9 % (0.00-10.9); Hematocrit 37.5 VOL% (35.7-47.0); Hemoglobin 12.2 GM/DL (12.0-16.0); Immature Granulocytes % 0.2 %; Immature Granulocytes Absolute 0.02 #; Lymphocytes # 1.6 10*3/uL (1.4-4.0); Mean Corpuscular HGB Conc 32.5 GM/DL (32-36); Mean Corpuscular Volume 91.5 FL (87-102); Mean Platelet Volume 10.7 FL (9.6-12.0); Monocytes # 0.6 10*3/uL (0.11-0.8); Monocytes % 7.7 % (1.7-12.7); Neutrophils % 70.8 % (38.7-73.9); Platelet Count 164 T/CUMM (130-400); Red Cell Distribution Width 13.6 % (9.3-17.3)
[2022-03-26 05:48] LABS: Calcium 9.4 MG/DL (8.5-10.1); Osmolality,Calculated 279.5 MOS/KG (273-304); Phosphorous 4.2 MG/DL (2.5-4.9)
[2022-03-26] MEDS: PANTOPRAZOLE 40 MG TABLET PO SCH (08:36)
[2022-03-26] MEDS: INSULIN REGULAR 100 UNIT/ML SUBCUT SCH ×4 (08:36→22:22)
[2022-03-26] MEDS: MENTHOL/ZINC OXIDE OINT 71 GM JAR TOP SCH ×2 (08:37→21:07)
[2022-03-26] MEDS: ZALEPLON 5 MG CAPSULE PO PRN (21:06)
[2022-03-27] MEDS: HEPARIN 5,000 UNIT/1 ML VIAL SUBCUT SCH ×2 (05:19→17:11)
[2022-03-27] MEDS: MENTHOL/ZINC OXIDE OINT 71 GM JAR TOP SCH ×2 (08:26→22:26)
[2022-03-27] MEDS: PANTOPRAZOLE 40 MG TABLET PO SCH (08:26)
[2022-03-27] MEDS: INSULIN REGULAR 100 UNIT/ML SUBCUT SCH ×4 (08:26→22:26)
[2022-03-27] MEDS ORDERED: levETIRAcetam 500 MG TABLET PO ONE (14:00)
[2022-03-27] MEDS ORDERED: levETIRAcetam 500 MG TABLET PO SCH (14:00)
[2022-03-28] MEDS: HEPARIN 5,000 UNIT/1 ML VIAL SUBCUT SCH (05:17)
[2022-03-28] MEDS: INSULIN REGULAR 100 UNIT/ML SUBCUT SCH ×3 (08:28→17:00)
[2022-03-28] MEDS: PANTOPRAZOLE 40 MG TABLET PO SCH (08:28)
[2022-03-28] MEDS: MENTHOL/ZINC OXIDE OINT 71 GM JAR TOP SCH (08:29)
[2022-03-28 16:51] VITALS: BP 127/51
[2022-03-28] MEDS ORDERED: levETIRAcetam 500 MG TABLET PO SCH (17:00)
[2022-03-28] MEDS ORDERED: levETIRAcetam 250 MG TABLET PO SCH (17:00)
== END 2022-03-28 17:29 | disposition home or self-care (01) | DRG 637 ==
LOC: SUATTDRO 17:18 → N.3E 17:18
PROVIDERS: ADMIT Internal Medicine; ATTEND Internal Medicine

== ENCOUNTER 2022-09-30 19:06 | Inpatient (IN) ==
[2022-09-30] MEDS ORDERED: SODIUM CHLORIDE 0.9% 1,000 ML IV STA ×2 (21:05→21:49)
[2022-09-30 21:23] LABS: Basophils % 0.5 % (0.0-0.8); Eosinophils # 0.1 10*3/uL (0.0-0.87); Eosinophils % 1.3 % (0.00-10.9); Hematocrit 31.6 VOL% (35.7-47.0); Hemoglobin 10.4 GM/DL (12.0-16.0); Immature Granulocytes % 0.3 %; Immature Granulocytes Absolute 0.02 #; Lymphocytes # 1.2 10*3/uL (1.4-4.0); Lymphocytes % 16.2 % (21.3-54.2); Mean Corpuscular HGB Conc 32.9 GM/DL (32-36); Mean Corpuscular Volume 92.1 FL (87-102); Mean Platelet Volume 11.3 FL (9.6-12.0); Monocytes # 0.5 10*3/uL (0.11-0.8); Monocytes % 6.3 % (1.7-12.7); Neutrophils % 75.4 % (38.7-73.9); Platelet Count 150 T/CUMM (130-400); Red Blood Count 3.43 MC/CUMM (3.8-5.5); Red Cell Distribution Width 13.3 % (9.3-17.3); White Blood Count 7.5 T/CUMM (4-12)
[2022-09-30 21:27] LABS: Calcium 8.2 MG/DL (8.5-10.1); Osmolality,Calculated 319.2 MOS/KG (273-304); Potassium 4.5 MMOL/L (3.5-5.1)
[2022-09-30] MEDS ORDERED: INSULIN REGULAR 100 UNIT/ML IV STA (21:49)
[2022-09-30 22:59] LABS: Arterial Base Excess iSTAT -5 MMOL/L (-2.5-2.5); Arterial Bicarbonate iSTAT 20.8 MMOL/L (20-26); Arterial O2 Saturation iSTAT 92 % (95-100); Arterial PCO2 iSTAT 40 MM HG (35-48); Arterial PO2 iSTAT 68 MM HG (80-95); Arterial Total CO2 iSTAT 22 MMO/L (23-27)
[2022-09-30 22:59] LABS: Arterial Base Excess iSTAT -4 MMOL/L (-2.5-2.5); Arterial Bicarbonate iSTAT 23.3 MMOL/L (20-26); Arterial O2 Saturation iSTAT 41 % (95-100); Arterial PCO2 iSTAT 49 MM HG (35-48); Arterial PO2 iSTAT 26 MM HG (80-95); Arterial Total CO2 iSTAT 25 MMO/L (23-27); Arterial pH iSTAT 7.282 (7.35-7.45)
[2022-09-30] MEDS ORDERED: INSULIN REGULAR 100 UNIT/ML SUBCUT STA (23:35)
[2022-10-01] MEDS ORDERED: NICOTINE 21 MG/24 HR PATCH TRANSDERM PRN (00:33)
[2022-10-01] MEDS ORDERED: ACETAMINOPHEN 325 MG TABLET PO PRN (00:33)
[2022-10-01] MEDS ORDERED: MORPHINE 2 MG/1 ML SYRINGE IV PRN (00:33)
[2022-10-01] MEDS ORDERED: guaiFENesin/DM ER 600-30 MG TABLET PO PRN (00:33)
[2022-10-01] MEDS ORDERED: ZALEPLON 5 MG CAPSULE PO PRN (00:33)
[2022-10-01] MEDS ORDERED: diphenhydrAMINE CAP 25 MG CAPSULE PO PRN (00:33)
[2022-10-01] MEDS ORDERED: ALBUTEROL/IPRATROPIUM 3 ML NEB RESP TX PRN (00:33)
[2022-10-01] MEDS ORDERED: GLUCAGON 1 MG VIAL IM PRN (00:33)
[2022-10-01] MEDS ORDERED: hydrALAZINE 20 MG/1 ML VIAL IV PRN (00:33)
[2022-10-01] MEDS ORDERED: DEXTROSE 10% 250 ML BAG IV PRN (00:40)
[2022-10-01] MEDS: INSULIN REGULAR 100 UNIT/ML SUBCUT SCH ×4 (01:41→22:23)
[2022-10-01 02:55] LABS: Bacteria,Urine Occasional /HPF (Few); Mucus,Urine Occasional /LPF (Occasional); RBC,Urine 306 /HPF (0-4)
[2022-10-01 02:56] LABS: Urine Appearance Slightly Cloudy (Clear); Urine Color Dark Yellow (Yellow); Urine pH 8.5 (4.5-8.0)
[2022-10-01 02:57] LABS: Bilirubin,Urine Negative (Negative); Blood, Urine Large mg/dL (Negative); Glucose,Urine (UA) 500 mg/dL (Negative); Ketones,Urine Negative (Negative); Nitrite,Urine Negative (Negative); Protein,Urine >=300 mg/dL (Negative); Urine Urobilinogen 0.2 eU/dL (<2.0)
[2022-10-01 03:33] LABS: Barbiturates Screen,Urine Negative (Negative); Benzodiazepines Screen,Urine Negative (Negative); Cannabinoid Screen,Urine Negative (Negative); Opiate Screen,Urine Negative (Negative); Phencyclidine Screen,Urine Negative (Negative)
[2022-10-01 03:44] LABS: Basophils # 0.1 10*3/uL (0.0-0.2); Basophils % 0.5 % (0.0-0.8); Eosinophils # 0.2 10*3/uL (0.0-0.87); Eosinophils % 2.2 % (0.00-10.9); Hematocrit 28.5 VOL% (35.7-47.0); Hemoglobin 9.5 GM/DL (12.0-16.0); Immature Granulocytes % 0.4 %; Immature Granulocytes Absolute 0.04 #; Lymphocytes # 1.8 10*3/uL (1.4-4.0); Lymphocytes % 19.2 % (21.3-54.2); Mean Corpuscular HGB Conc 33.3 GM/DL (32-36); Mean Corpuscular Volume 92.8 FL (87-102); Monocytes # 0.7 10*3/uL (0.11-0.8); Monocytes % 7.1 % (1.7-12.7); Neutrophils % 70.6 % (38.7-73.9); Platelet Count 135 T/CUMM (130-400); Red Blood Count 3.07 MC/CUMM (3.8-5.5); Red Cell Distribution Width 13.3 % (9.3-17.3); White Blood Count 9.2 T/CUMM (4-12)
[2022-10-01 04:04] LABS: Albumin 3.1 G/DL (3.4-5.0); Bilirubin,Total 0.5 MG/DL (0.20-1.00); Potassium 4.1 MMOL/L (3.5-5.1); Total Protein 7.1 G/DL (6.4-8.2)
[2022-10-01 04:05] LABS: Albumin 3.2 G/DL (3.4-5.0); Bilirubin,Direct 0.28 MG/DL (0.0-0.20); Bilirubin,Indirect 0.2 MG/DL (0.0-1.0); Bilirubin,Total 0.5 MG/DL (0.20-1.00); Total Protein 6.8 G/DL (6.4-8.2)
[2022-10-01 04:41] LABS: Hepatitis B Core IgM Quant < 0.05 Index; Hepatitis B Surface Ag Quant < 0.10 Index; Hepatitis B Surface Ag Result Non-Reactive (NonReactive); Hepatitis C Virus Ab Quant 0.09 Index; Hepatitis C Virus Ab Result Non-Reactive (NonReactive)
[2022-10-01] MEDS ORDERED: INFLUENZA VIRUS VACCINE 0.5 ML SYRINGE IM ONE (09:14)
[2022-10-01] MEDS ORDERED: PNEUMOCOCCAL VACCINE (13 VALENT) 0.5 ML SYRINGE IM ONE (09:14)
[2022-10-01] MEDS ORDERED: PNEUMOCOCCAL VACCINE (20 VALENT) 0.5 ML SYRINGE IM ONE (11:30)
[2022-10-01 13:53] LABS: Hematocrit 20.3 VOL% (35.7-47.0); Hemoglobin 6.7 GM/DL (12.0-16.0)
[2022-10-01] MEDS ORDERED: SODIUM CHLORIDE 0.9% 1,000 ML IV PRN (14:22)
[2022-10-01] MEDS: INSULIN GLARGINE 100 UNIT/ML SUBCUT SCH (23:02)
[2022-10-02] MEDS: INSULIN REGULAR 100 UNIT/ML SUBCUT SCH ×4 (04:36→21:36)
[2022-10-02] MEDS: PANTOPRAZOLE 40 MG TABLET PO SCH ×2 (04:36→09:18)
[2022-10-02] MEDS: ONDANSETRON 4 MG/2 ML VIAL IV PRN ×2 (04:59→09:18)
[2022-10-02 05:28] LABS: Basophils # 0.1 10*3/uL (0.0-0.2); Basophils % 0.5 % (0.0-0.8); Eosinophils # 0.2 10*3/uL (0.0-0.87); Eosinophils % 2.3 % (0.00-10.9); Hemoglobin 9.3 GM/DL (12.0-16.0); Immature Granulocytes % 1.4 %; Immature Granulocytes Absolute 0.13 #; Lymphocytes # 2.3 10*3/uL (1.4-4.0); Lymphocytes % 25.3 % (21.3-54.2); Mean Corpuscular HGB Conc 33.2 GM/DL (32-36); Mean Corpuscular Volume 90.9 FL (87-102); Mean Platelet Volume 10.9 FL (9.6-12.0); Monocytes # 0.6 10*3/uL (0.11-0.8); Monocytes % 6.5 % (1.7-12.7); Platelet Count 139 T/CUMM (130-400); Red Blood Count 3.08 MC/CUMM (3.8-5.5); Red Cell Distribution Width 14.3 % (9.3-17.3); White Blood Count 9.1 T/CUMM (4-12)
[2022-10-02 05:54] LABS: Calcium 8.5 MG/DL (8.5-10.1); Osmolality,Calculated 291.3 MOS/KG (273-304); Potassium 4.2 MMOL/L (3.5-5.1)
[2022-10-02] MEDS ORDERED: SEVELAMER CARBONATE 800 MG TABLET PO SCH (15:00)
[2022-10-02] MEDS: SEVELAMER CARBONATE 800 MG TABLET PO SCH ×2 (17:10→21:24)
[2022-10-02] MEDS: INSULIN GLARGINE 100 UNIT/ML SUBCUT SCH (21:26)
[2022-10-03] MEDS: INSULIN REGULAR 100 UNIT/ML SUBCUT SCH ×3 (00:35→12:27)
[2022-10-03 06:13] LABS: Basophils % 0.5 % (0.0-0.8); Eosinophils # 0.2 10*3/uL (0.0-0.87); Eosinophils % 2.9 % (0.00-10.9); Hematocrit 26.8 VOL% (35.7-47.0); Hemoglobin 8.6 GM/DL (12.0-16.0); Immature Granulocytes % 0.7 %; Immature Granulocytes Absolute 0.05 #; Lymphocytes # 1.9 10*3/uL (1.4-4.0); Lymphocytes % 25.4 % (21.3-54.2); Mean Corpuscular HGB Conc 32.1 GM/DL (32-36); Mean Corpuscular Volume 93.1 FL (87-102); Mean Platelet Volume 10.9 FL (9.6-12.0); Monocytes # 0.7 10*3/uL (0.11-0.8); Monocytes % 9.9 % (1.7-12.7); Neutrophils % 60.6 % (38.7-73.9); Platelet Count 158 T/CUMM (130-400); Red Blood Count 2.88 MC/CUMM (3.8-5.5); White Blood Count 7.5 T/CUMM (4-12)
[2022-10-03 06:31] LABS: Calcium 8.4 MG/DL (8.5-10.1); Osmolality,Calculated 294.5 MOS/KG (273-304); Potassium 4.2 MMOL/L (3.5-5.1)
[2022-10-03] MEDS ORDERED: PARoxetine 10 MG TABLET PO SCH (09:00)
[2022-10-03] MEDS ORDERED: ASPIRIN EC 81 MG TABLET PO SCH (09:00)
[2022-10-03] MEDS: SEVELAMER CARBONATE 800 MG TABLET PO SCH ×2 (09:19→12:27)
[2022-10-03] MEDS: PANTOPRAZOLE 40 MG TABLET PO SCH (09:19)
[2022-10-03] MEDS ORDERED: amLODIPine 2.5 MG TABLET PO SCH (09:30)
[2022-10-03 15:29] VITALS: BP 185/75
[2022-10-03] MEDS ORDERED: levETIRAcetam 500 MG TABLET PO SCH (21:00)
== END 2022-10-03 15:31 | disposition home or self-care (01) | DRG 637 ==
LOC: EDUNIT# → EDBD → N.ED 19:06 → SUATTDRO 10-01 00:39 → N.EDINP 10-01 00:39 → N.TELES 10-01 20:06
PROVIDERS: ADMIT Emergency Medicine; ATTEND Internal Medicine

== ENCOUNTER 2022-11-09 13:10 | Inpatient (IN) ==
[2022-11-09] MEDS: hydrALAZINE 20 MG/1 ML VIAL IV PRN (15:44)
[2022-11-09] MEDS ORDERED: GLUCAGON 1 MG VIAL IM PRN (15:59)
[2022-11-09] MEDS ORDERED: DEXTROSE 10% 250 ML BAG IV PRN (16:02)
[2022-11-09 16:13] LABS: Basophils % 0.4 % (0.0-0.8); Eosinophils % 0.6 % (0.00-10.9); Hematocrit 32.2 VOL% (35.7-47.0); Hemoglobin 10.5 GM/DL (12.0-16.0); Immature Granulocytes % 0.4 %; Immature Granulocytes Absolute 0.03 #; Lymphocytes # 1.1 10*3/uL (1.4-4.0); Lymphocytes % 15.8 % (21.3-54.2); Mean Corpuscular HGB Conc 32.6 GM/DL (32-36); Mean Corpuscular Volume 90.2 FL (87-102); Mean Platelet Volume 12.2 FL (9.6-12.0); Monocytes # 0.5 10*3/uL (0.11-0.8); Monocytes % 7.1 % (1.7-12.7); Neutrophils % 75.7 % (38.7-73.9); Platelet Count 117 T/CUMM (130-400); Red Blood Count 3.57 MC/CUMM (3.8-5.5); Red Cell Distribution Width 13.8 % (9.3-17.3); White Blood Count 7.07 T/CUMM (4-12)
[2022-11-09] MEDS ORDERED: INSULIN LISPRO 100 UNIT/ML SUBCUT SCH (16:30)
[2022-11-09 16:32] LABS: Albumin 3.1 G/DL (3.4-5.0); Bilirubin,Total 0.6 MG/DL (0.20-1.00); Calcium 8.1 MG/DL (8.5-10.1); Osmolality,Calculated 290.4 MOS/KG (273-304); Potassium 4.1 MMOL/L (3.5-5.1); Total Protein 7.2 G/DL (6.4-8.2)
[2022-11-09] MEDS ORDERED: LACTULOSE 20 GM/30 ML UDCUP PO ONE (17:21)
[2022-11-09] MEDS: LACTULOSE 20 GM/30 ML UDCUP PO SCH ×2 (17:43→23:24)
[2022-11-09] MEDS: HEPARIN 5,000 UNIT/1 ML VIAL SUBCUT SCH (17:53)
[2022-11-09] MEDS: INSULIN REGULAR 100 UNIT/ML SUBCUT SCH ×2 (17:54→22:45)
[2022-11-09] MEDS: RIFAXIMIN 550 MG TABLET PO SCH (20:28)
[2022-11-09] MEDS: INSULIN GLARGINE 100 UNIT/ML SUBCUT SCH (20:28)
[2022-11-09] MEDS ORDERED: LACTULOSE 20 GM/30 ML UDCUP PO SCH (21:00)
[2022-11-09] MEDS ORDERED: ENOXAPARIN 30 MG/0.3 ML SYRINGE SUBCUT SCH (21:00)
[2022-11-09] MEDS ORDERED: SULFAMETHOX/TRIMETHOPRIM 800-160 MG TABLET PO SCH (21:00)
[2022-11-10] MEDS: INSULIN REGULAR 100 UNIT/ML SUBCUT SCH ×5 (02:37→21:16)
[2022-11-10] MEDS: LACTULOSE 20 GM/30 ML UDCUP PO SCH ×3 (05:02→22:00)
[2022-11-10] MEDS: HEPARIN 5,000 UNIT/1 ML VIAL SUBCUT SCH (06:04)
[2022-11-10] MEDS: hydrALAZINE 20 MG/1 ML VIAL IV PRN (06:35)
[2022-11-10 08:02] LABS: Basophils % 0.4 % (0.0-0.8); Eosinophils # 0.1 10*3/uL (0.0-0.87); Eosinophils % 1.7 % (0.00-10.9); Hematocrit 30.6 VOL% (35.7-47.0); Hemoglobin 9.9 GM/DL (12.0-16.0); Immature Granulocytes % 0.2 %; Immature Granulocytes Absolute 0.02 #; Lymphocytes # 1.4 10*3/uL (1.4-4.0); Lymphocytes % 16.8 % (21.3-54.2); Mean Corpuscular HGB Conc 32.4 GM/DL (32-36); Mean Corpuscular Volume 90.8 FL (87-102); Mean Platelet Volume 11.3 FL (9.6-12.0); Monocytes # 0.5 10*3/uL (0.11-0.8); Monocytes % 6.3 % (1.7-12.7); Neutrophils % 74.6 % (38.7-73.9); Platelet Count 119 T/CUMM (130-400); Red Blood Count 3.37 MC/CUMM (3.8-5.5); Red Cell Distribution Width 14.3 % (9.3-17.3); White Blood Count 8.43 T/CUMM (4-12)
[2022-11-10] MEDS: RIFAXIMIN 550 MG TABLET PO SCH ×2 (08:45→21:55)
[2022-11-10] MEDS: PANTOPRAZOLE 40 MG TABLET PO SCH (08:45)
[2022-11-10] MEDS ORDERED: ISOSORBIDE MONONITRATE 30 MG TABLET PO SCH ×2 (09:00)
[2022-11-10 09:40] LABS: Calcium 8.8 MG/DL (8.5-10.1); Potassium 3.2 MMOL/L (3.5-5.1)
[2022-11-10 09:49] LABS: Osmolality,Calculated 272.7 MOS/KG (273-304)
[2022-11-10 10:30] LABS: Risk Ratio 1.41; VLDL Cholesterol 5.6 MG/DL
[2022-11-10] MEDS: amLODIPine 10 MG TABLET PO SCH (11:10)
[2022-11-10] MEDS ORDERED: DEXTROSE 50% 25 GM/50 ML VIAL IV PRN (12:28)
[2022-11-10] MEDS ORDERED: GLUCAGON 1 MG VIAL IM PRN (12:28)
[2022-11-10] MEDS: carvediloL 6.25 MG TABLET PO SCH ×2 (13:57→21:55)
[2022-11-10] MEDS ORDERED: ZINC OXIDE PASTE 113 GM TUBE TOP PRN (14:03)
[2022-11-10] MEDS: ceFAZolin 2,000 MG/50 ML DUPLEX IV SCH (21:56)
[2022-11-10] MEDS: INSULIN GLARGINE 100 UNIT/ML SUBCUT SCH (21:56)
[2022-11-11] MEDS: INSULIN REGULAR 100 UNIT/ML SUBCUT SCH ×7 (00:30→22:15)
[2022-11-11] MEDS: LACTULOSE 20 GM/30 ML UDCUP PO SCH ×4 (01:21→17:32)
[2022-11-11 05:51] LABS: Basophils % 0.4 % (0.0-0.8); Eosinophils # 0.2 10*3/uL (0.0-0.87); Eosinophils % 2.2 % (0.00-10.9); Hematocrit 31.3 VOL% (35.7-47.0); Immature Granulocytes % 0.6 %; Immature Granulocytes Absolute 0.04 #; Lymphocytes # 1.1 10*3/uL (1.4-4.0); Lymphocytes % 14.9 % (21.3-54.2); Mean Corpuscular HGB Conc 31.9 GM/DL (32-36); Mean Corpuscular Volume 92.6 FL (87-102); Mean Platelet Volume 11.7 FL (9.6-12.0); Monocytes # 0.6 10*3/uL (0.11-0.8); Monocytes % 7.9 % (1.7-12.7); Platelet Count 105 T/CUMM (130-400); Red Blood Count 3.38 MC/CUMM (3.8-5.5); Red Cell Distribution Width 14.7 % (9.3-17.3); White Blood Count 7.26 T/CUMM (4-12)
[2022-11-11 06:13] LABS: Albumin 2.5 G/DL (3.4-5.0); Bilirubin,Direct 0.16 MG/DL (0.0-0.20); Bilirubin,Indirect 0.4 MG/DL (0.0-1.0); Bilirubin,Total 0.6 MG/DL (0.20-1.00); Calcium 8.6 MG/DL (8.5-10.1); Osmolality,Calculated 282.8 MOS/KG (273-304); Potassium 3.5 MMOL/L (3.5-5.1); Risk Ratio 2.46; Total Protein 6.4 G/DL (6.4-8.2); VLDL Cholesterol 19.8 MG/DL
[2022-11-11] MEDS ORDERED: propofoL 200 MG/20 ML VIAL IV ONE (10:36)
[2022-11-11] MEDS ORDERED: SEVOFLURANE 1 UNIT/15 MINUTE INH ONE ×2 (10:36→11:16)
[2022-11-11] MEDS ORDERED: LIDOCAINE 2% 5 ML VIAL ONE (10:36)
[2022-11-11] MEDS ORDERED: fentaNYL 100 MCG/2 ML VIAL ONE (10:36)
[2022-11-11] MEDS ORDERED: MIDAZOLAM 2 MG/2 ML VIAL ONE (10:36)
[2022-11-11] MEDS ORDERED: KETAMINE 500 MG/10 ML VIAL ONE (10:49)
[2022-11-11] MEDS ORDERED: LIDOCAINE 1%/EPI INJ 20 ML VIAL ONE (10:57)
[2022-11-11] MEDS ORDERED: BUPIVACAINE MPF 0.25% 10 ML VIAL ONE (10:57)
[2022-11-11] MEDS ORDERED: SODIUM CHLORIDE 0.9% 250 ML IV SCH (11:00)
[2022-11-11] MEDS ORDERED: CLINDAMYCIN INJ 900 MG/50 ML PREMIX IV ONE (11:11)
[2022-11-11] MEDS: PANTOPRAZOLE 40 MG TABLET PO SCH (12:54)
[2022-11-11] MEDS: carvediloL 6.25 MG TABLET PO SCH ×2 (12:55→17:32)
[2022-11-11] MEDS: RIFAXIMIN 550 MG TABLET PO SCH ×2 (12:55→22:15)
[2022-11-11] MEDS: levETIRAcetam 500 MG TABLET PO SCH (12:55)
[2022-11-11] MEDS: ASPIRIN EC 81 MG TABLET PO SCH (12:55)
[2022-11-11] MEDS: amLODIPine 10 MG TABLET PO SCH (12:55)
[2022-11-11] MEDS ORDERED: DEXTROSE 50% 25 GM/50 ML VIAL IV PRN (13:28)
[2022-11-11] MEDS ORDERED: POTASSIUM CHLORIDE 20 MEQ TABLET PO ONE (15:00)
[2022-11-11] MEDS: INSULIN GLARGINE 100 UNIT/ML SUBCUT SCH (22:17)
[2022-11-12] MEDS: LACTULOSE 20 GM/30 ML UDCUP PO SCH ×5 (01:01→23:55)
[2022-11-12] MEDS ORDERED: ACETAMINOPHEN 325 MG TABLET PO PRN (02:18)
[2022-11-12 05:59] LABS: Basophils % 0.5 % (0.0-0.8); Eosinophils # 0.2 10*3/uL (0.0-0.87); Eosinophils % 3.2 % (0.00-10.9); Hematocrit 32.2 VOL% (35.7-47.0); Hemoglobin 9.9 GM/DL (12.0-16.0); Immature Granulocytes % 0.3 %; Immature Granulocytes Absolute 0.02 #; Lymphocytes # 1.1 10*3/uL (1.4-4.0); Lymphocytes % 18.3 % (21.3-54.2); Mean Corpuscular HGB Conc 30.7 GM/DL (32-36); Mean Corpuscular Volume 93.6 FL (87-102); Mean Platelet Volume 11.4 FL (9.6-12.0); Monocytes # 0.5 10*3/uL (0.11-0.8); Monocytes % 8.4 % (1.7-12.7); Neutrophils % 69.3 % (38.7-73.9); Platelet Count 125 T/CUMM (130-400); Red Blood Count 3.44 MC/CUMM (3.8-5.5); Red Cell Distribution Width 15.4 % (9.3-17.3); White Blood Count 6.17 T/CUMM (4-12)
[2022-11-12 06:18] LABS: Calcium 7.7 MG/DL (8.5-10.1)
[2022-11-12] MEDS: levETIRAcetam 500 MG TABLET PO SCH (09:29)
[2022-11-12] MEDS: RIFAXIMIN 550 MG TABLET PO SCH ×2 (09:30→20:06)
[2022-11-12] MEDS: ASPIRIN EC 81 MG TABLET PO SCH (09:30)
[2022-11-12] MEDS: PANTOPRAZOLE 40 MG TABLET PO SCH (09:30)
[2022-11-12] MEDS: INSULIN REGULAR 100 UNIT/ML SUBCUT SCH ×4 (12:11→21:27)
[2022-11-12] MEDS: carvediloL 6.25 MG TABLET PO SCH ×2 (16:47→17:04)
[2022-11-12] MEDS: amLODIPine 10 MG TABLET PO SCH (17:01)
[2022-11-12] MEDS: SODIUM HYPOCHLORITE 0.25% IRRIG 473 ML BOTTLE TOP SCH (17:02)
[2022-11-12] MEDS: ceFAZolin 2,000 MG/50 ML DUPLEX IV SCH (17:03)
[2022-11-12] MEDS ORDERED: ALPRAZolam 0.5 MG TABLET PO ONE (19:03)
[2022-11-12] MEDS ORDERED: ONDANSETRON 4 MG/2 ML VIAL IV PRN (19:03)
[2022-11-12] MEDS: INSULIN GLARGINE 100 UNIT/ML SUBCUT SCH (20:07)
[2022-11-13] MEDS: LACTULOSE 20 GM/30 ML UDCUP PO SCH ×3 (05:53→17:18)
[2022-11-13 06:18] LABS: Basophils % 0.6 % (0.0-0.8); Eosinophils # 0.2 10*3/uL (0.0-0.87); Eosinophils % 4.4 % (0.00-10.9); Hematocrit 33.6 VOL% (35.7-47.0); Hemoglobin 10.4 GM/DL (12.0-16.0); Immature Granulocytes % 0.2 %; Immature Granulocytes Absolute 0.01 #; Lymphocytes # 1.4 10*3/uL (1.4-4.0); Lymphocytes % 25.9 % (21.3-54.2); Mean Corpuscular Volume 94.9 FL (87-102); Mean Platelet Volume 10.6 FL (9.6-12.0); Monocytes # 0.5 10*3/uL (0.11-0.8); Monocytes % 8.9 % (1.7-12.7); Platelet Count 128 T/CUMM (130-400); Red Blood Count 3.54 MC/CUMM (3.8-5.5); Red Cell Distribution Width 15.8 % (9.3-17.3); White Blood Count 5.41 T/CUMM (4-12)
[2022-11-13 06:36] LABS: Calcium 8.1 MG/DL (8.5-10.1); Osmolality,Calculated 285.4 MOS/KG (273-304); Potassium 3.8 MMOL/L (3.5-5.1)
[2022-11-13] MEDS: carvediloL 6.25 MG TABLET PO SCH (08:45)
[2022-11-13] MEDS: SODIUM HYPOCHLORITE 0.25% IRRIG 473 ML BOTTLE TOP SCH (08:45)
[2022-11-13] MEDS: amLODIPine 10 MG TABLET PO SCH (08:45)
[2022-11-13] MEDS: ASPIRIN EC 81 MG TABLET PO SCH (08:45)
[2022-11-13] MEDS: INSULIN REGULAR 100 UNIT/ML SUBCUT SCH ×4 (08:45→21:07)
[2022-11-13] MEDS: levETIRAcetam 500 MG TABLET PO SCH (08:45)
[2022-11-13] MEDS: RIFAXIMIN 550 MG TABLET PO SCH ×2 (08:46→21:06)
[2022-11-13] MEDS: PANTOPRAZOLE 40 MG TABLET PO SCH (08:46)
[2022-11-13] MEDS: DIPHENOXYLATE/ATROPINE 2.5-0.025 MG TABLET PO SCH ×3 (12:46→21:06)
[2022-11-13] MEDS: INSULIN GLARGINE 100 UNIT/ML SUBCUT SCH (21:07)
[2022-11-14] MEDS: LACTULOSE 20 GM/30 ML UDCUP PO SCH ×3 (01:24→13:28)
[2022-11-14 05:21] LABS: Basophils # 0.1 10*3/uL (0.0-0.2); Basophils % 0.7 % (0.0-0.8); Eosinophils # 0.3 10*3/uL (0.0-0.87); Eosinophils % 4.1 % (0.00-10.9); Hemoglobin 10.7 GM/DL (12.0-16.0); Immature Granulocytes % 0.3 %; Immature Granulocytes Absolute 0.02 #; Lymphocytes # 1.5 10*3/uL (1.4-4.0); Lymphocytes % 20.2 % (21.3-54.2); Mean Corpuscular HGB Conc 30.6 GM/DL (32-36); Mean Corpuscular Volume 96.4 FL (87-102); Monocytes # 0.7 10*3/uL (0.11-0.8); Monocytes % 8.8 % (1.7-12.7); Neutrophils % 65.9 % (38.7-73.9); Platelet Count 127 T/CUMM (130-400); Red Blood Count 3.63 MC/CUMM (3.8-5.5); White Blood Count 7.61 T/CUMM (4-12)
[2022-11-14 05:45] LABS: Calcium 8.3 MG/DL (8.5-10.1); Osmolality,Calculated 288.4 MOS/KG (273-304); Potassium 4.4 MMOL/L (3.5-5.1)
[2022-11-14] MEDS: INSULIN REGULAR 100 UNIT/ML SUBCUT SCH ×2 (07:52→13:29)
[2022-11-14] MEDS ORDERED: carvediloL 3.125 MG TABLET PO SCH (08:00)
[2022-11-14] MEDS: amLODIPine 10 MG TABLET PO SCH (11:21)
[2022-11-14] MEDS: ASPIRIN EC 81 MG TABLET PO SCH (11:22)
[2022-11-14] MEDS: DIPHENOXYLATE/ATROPINE 2.5-0.025 MG TABLET PO SCH ×2 (11:23→13:29)
[2022-11-14] MEDS: levETIRAcetam 500 MG TABLET PO SCH (11:23)
[2022-11-14] MEDS: PANTOPRAZOLE 40 MG TABLET PO SCH (11:23)
[2022-11-14] MEDS: RIFAXIMIN 550 MG TABLET PO SCH (11:23)
[2022-11-14 13:28] VITALS: BP 181/64
[2022-11-14] MEDS: SODIUM HYPOCHLORITE 0.25% IRRIG 473 ML BOTTLE TOP SCH (13:31)
== END 2022-11-14 16:41 | disposition home or self-care (01) | DRG 987 ==
LOC: N.2E → SUATTDRO 14:38
PROVIDERS: ADMIT Internal Medicine; ATTEND Family Medicine